=== PATIENT | female | born 1970 | race African-American/Black ===

== ENCOUNTER 2020-09-24 13:26 | Outpatient (CLI) | payer BC, SELFPAY ==
--- NOTE | ~2020-09-24 | CT_ITS ---
EXAMINATION: CT abdomen pelvis wo con DATE: 09/24/2020 13:53 INDICATION: Intermittent right lower quadrant abdominal pain for a month TECHNIQUE: Computed tomography (CT) of the abdomen and pelvis was performed without intravenous contr ast. Automated exposure control and iterative reconstruction technique were employed. Exam dose: 107 8.13 mGy-cm total exam DLP. COMPARISON: 12/22/2016 CT abdomen pelvis with IV contrast material FINDINGS: The lung bases are clear of infiltrate or consolidation. No pericardial or pleural effusion . The liver, gallbladder, bile ducts, spleen, pancreas and pancreatic duct are unremarkable on this pickard ited noncontrast examination. No adrenal mass lesion or renal mass lesion is evident. No urinary trac t calculus or hydroureteronephrosis is detected. The urinary bladder is unremarkable. The uterus and adnexal areas are unremarkable. Normal caliber of the abdominal aorta. No intraperitoneal or retroperitoneal or pelvic mass lesion or adenopathy or ascites. Normal appendix. No bowel obstruction. There is a prominent amount of fecal material in the colon. No bowel wall thickening, pneumatosis or intraperitoneal free air is detected. Small fat-containing umbilical hernia. There is a midline infraumbilical surgical ventral abdominal w all scar. Severe degenerative disc disease at L5-S1. Bilateral osteitis condensans ilii. No suspicious osteolytic or osteoblastic lesions are noted. IMPRESSION: Normal appendix; prominent amount of fecal material in the colon, no bowel obstruction Reviewed, dictated and finalized at [facility]. Reviewed, dictated and finalized at location B. DRIER
[2020-09-24 14:28] LABS: Basophils Absolute Auto 0.1 K/mm3 (0.0-0.1); Basophils Percent Auto 0.6 % (0.2-1.2); Eosinophils Absolute Auto 0.1 K/mm3 (0-0.3); Eosinophils Percent Auto 0.9 % (0-4.4); Hematocrit 36.4 % (37.0-47.0); Hemoglobin 11.2 g/dL (12.0-15.0); Immature Granulocyte Absolute 0.02 K/mm3 (0.00-0.031); Immature Granulocyte Percent A 0.2 % (0-0.5); Lymphocytes Absolute Auto 3.19 K/mm3 (0.9-3.2); Mean Corpuscular HGB Conc 30.8 g/dl (32-36); Mean Corpuscular Hemoglobin 22.4 pg (26-34); Mean Corpuscular Volume 72.7 fl (80-100); Monocytes Absolute Auto 0.5 K/mm3 (0.1-0.6); Monocytes Percent Auto 5.2 % (2.6-8.5); Neutrophils Absolute Auto 5.5 K/mm3 (1.3-6.7); Neutrophils Percent Auto 59.1 % (45.5-73.1); Platelet Count Result 281 k/mm3 (150-375); Red Blood Count 5.01 M/mm3 (4.2-5.4); Red Cell Distribution Width 16.4 % (11.5-14.5); White Blood Count 9.4 K/mm3 (4.5-10.0)
[2020-09-24 14:34] LABS: Add Urine Microscopic? YES; Appearance Urine Clear (Clear); Bilirubin Urine Negative (Negative); Blood Urine 1+ (Negative); Color Urine Straw (Yellow); Glucose Urine UA 3+ mg/dL (Negative); Ketones Urine Negative (Negative); Leukocyte Esterase Ur Negative LEU/UL (Negative); Mucus Urine Rare /lpf; Nitrate Urine Negative (Negative); Protein Urine 2+ mg/dL (Negative); RBC Urine 0-2 /hpf (0-2); Squamous Epithelial Cell Urine Rare /hpf (Few); Urobilinogen Urine Negative mg/dL (<2.0); WBC Urine 0-3 /hpf
[2020-09-24 14:35] LABS: Specific Grav Ur 1.031 (1.001-1.035)
[2020-09-24 14:47] LABS: Alanine Aminotransferase 16 U/L (4-35); Alkaline Phosphatase 100 U/L (38-126); Anion Gap 7 mmol/L (8-16); Aspartate Amino Transferase 23 U/L (14-36); Bilirubin,Total 0.3 mg/dL (0.2-1.3); Blood Urea Nitrogen 15 mg/dL (7-17); Calcium 9.6 mg/dL (8.4-10.2); Carbon Dioxide 32 mmol/L (22-30); Chloride 97 mmol/L (98-107); Estimated Glomerular Filt Rate > 60; Glucose 378 mg/dL (65-105); Potassium 4.5 mmol/L (3.4-5.0); Sodium 136 mmol/L (137-145)
== END 2020-09-24 13:27 | disposition home or self-care (01) ==
PROVIDERS: PCP Physician Assistant; Visit Provider Physician Assistant
DX: R10.31 Right lower quadrant pain (principal)
CPT/HCPCS: 36415; 74176; 80053; 81001; 85025

== ENCOUNTER 2021-01-01 10:36 | Outpatient (CLI) | payer OTHER, BC, SELFPAY ==
--- NOTE | ~2021-01-01 | MR_ITS ---
EXAMINATION: MR shoulder LT wo con DATE: 01/01/2021 11:34 INDICATION: Left rotator cuff cuff tear. TECHNIQUE: Magnetic resonance imaging (MRI) of the left shoulder was performed without intravenous co ntrast. Sequences included axial PD-weighted FS FSE, coronal oblique PD-weighted FS FSE, coronal obli que T2-weighted FS FSE, sagittal PD-weighted FS FSE, and sagittal T1-weighted SE. COMPARISON: None. FINDINGS: Coracoacromial arch: The acromion undersurface is curved in morphology (type II). The coracoacromial ligament is normal. M ild acromioclavicular osteoarthritis with small inferiorly directed osteophytes. Rotator cuff: Mild supraspinatus tendinopathy with full-thickness tear of the distal tendon which measures 1.2 cm A P and 0.8 cm medial to lateral. The tear is located within 8 mm of the of the superior facet footplat e with small amount of torn tendon material remaining attached along the footplate. Mild distal infra spinatus tendinopathy without discrete tear. The teres minor and subscapularis tendons are normal. N ormal rotator cuff muscle bulk and signal. Biceps tendon, glenoid labrum and glenohumeral cartilage: Long head of the biceps tendon is normal. Glenoid labrum is normal with normal anterosuperior sublabr al foramen. Glenohumeral cartilage is normal. Fluid: Small glenohumeral joint effusion which extends through the full-thickness rotator cuff tear into the subacromial/subdeltoid bursa along the long head biceps tendon sheath. No loose osteochondral bodies . Bones: Normal marrow signal with no edema, fracture or abnormal marrow replacing process. IMPRESSION: 1. Mild supraspinatus and infraspinatus tendinopathy with small to moderate-sized full-thickness tear of the distal supraspinatus tendon. Reviewed, dictated and finalized at location A. IMPRESSION: 1. Mild supraspinatus and infraspinatus tendinopathy with small to moderate-siz ed full-thickness tear of the distal supraspinatus tendon.
== END 2021-01-01 10:37 | disposition home or self-care (01) ==
LOC: ANHIMG 10:39
PROVIDERS: PCP Physician Assistant; Visit Provider Orthopaedic Surgery
DX: M75.102 Unspecified rotator cuff tear or rupture of left shoulder, not specified as traumatic (principal); M75.02 Adhesive capsulitis of left shoulder
CPT/HCPCS: 73221

== ENCOUNTER 2021-09-14 17:56 | Inpatient (IN) | payer BC, SELFPAY ==
[2021-09-14] VITALS (17 sets, daily range): BP systolic 164–182; BP diastolic 77–90; PULSE 90–99; RESP 19–54; TEMP 35.9; O2SAT 90–100
--- NOTE | ~2021-09-14 | CT_ITS ---
EXAMINATION: CTA chest PE protocol EXAM DATE: 09/14/2021 23:01 INDICATION: SOB, elevated d dimer. TECHNIQUE: Spiral CTA of the chest (pulmonary arteries) was performed with 100 cc Omnipaque 350 intr avenous contrast injection. Images were acquired during the pulmonary arterial phase. Coronal maxi mum intensity projection 3D-reconstructions were created by the technologist on dedicated workstation . Axial, coronal and sagittal reformatted images were reviewed. The dose-length product (DLP) for t his examination was 809.57 mGy-cm. The exposure was tailored according to patient size (auto mA exp osure control), and iterative reconstruction (ASIR) was used as additional dose reduction technique. Correlation is made to chest x-ray earlier same date. FINDINGS: The main, central pulmonary arteries are dilated which can indicate elevated pulmonary panda rial pressure, pulmonary arterial hypertension. Pulmonary arteries are well opacified and without in traluminal filling defects. No thoracic aortic dissection. There are moderate bilateral pleural eff usions, left greater than right. There is mild cardiomegaly. There is bibasilar compressive atelectas is from the pleural effusions. No evidence of superimposed pneumonia. Small pericardial effusion. Tra cheobronchial tree is patent. There is no mediastinal, hilar or axillary lymphadenopathy. There i s no pneumothorax. Heart normal in size. No evidence of coronary arterial calcification. Upper a bdomen is unremarkable. There is thoracic spondylosis without osteoblastic or osteolytic lesions id entified. IMPRESSION: Cardiomegaly. Moderate pleural effusions, adjacent atelectasis. Consider CHF exacerbatio n. Reviewed, dictated and finalized at location G. OR DATASTAGE DEVELOPER IMPRESSION: Cardiomegaly. Moderate pleural effusions, adjacent atelectasis. Co nsider CHF exacerbation.
--- NOTE | ~2021-09-14 | XR_ITS ---
EXAMINATION: XR chest 1V portable EXAM DATE: 09/14/2021 21:47 INDICATION: Shortness of breath. TECHNIQUE: Portable AP frontal chest x-ray was obtained. There is no prior study for comparison. FINDINGS: There is cardiomegaly and pulmonary vascular congestion. Moderate amount of ill-defined bib asilar pneumonia or edema. Probably small to moderate pleural effusions. Consider CHF exacerbation. P neumonia also possible. No pneumothorax. There are no osseous abnormalities identified. IMPRESSION: 1. Moderate edema or pneumonia. 2. Cardiomegaly, congestion. 3. Small to moderate pleural effusions. Reviewed, dictated and finalized at location G. NG CLOSER
[2021-09-14] MEDS: ALBUTEROL SULFATE NEB 2.5 MG/0.5 ML INH 5 MG INHALATION (22:06)
[2021-09-14] MEDS: IPRATROPIUM BR 0.02% INH SOLN 0.5 MG/2.5 ML VIAL INHALATION (22:06)
[2021-09-14 22:21] LABS: Basophils Absolute Auto 0.1 K/mm3 (0.0-0.1); Basophils Percent Auto 0.6 % (0.2-1.2); Eosinophils Absolute Auto 0.2 K/mm3 (0-0.3); Eosinophils Percent Auto 2.1 % (0-4.4); Hematocrit 28.6 % (37.0-47.0); Hemoglobin 8.6 g/dL (12.0-15.0); Immature Granulocyte Absolute 0.03 K/mm3 (0.00-0.031); Immature Granulocyte Percent A 0.3 % (0-0.5); Lymphocytes Absolute Auto 2.83 K/mm3 (0.9-3.2); Lymphocytes Percent Auto 29.6 % (18.3-44.2); Mean Corpuscular HGB Conc 30.1 g/dl (32-36); Mean Corpuscular Hemoglobin 21.1 pg (26-34); Mean Corpuscular Volume 70.1 fl (80-100); Monocytes Absolute Auto 0.5 K/mm3 (0.1-0.6); Monocytes Percent Auto 4.7 % (2.6-8.5); Neutrophils Percent Auto 62.7 % (45.5-73.1); Platelet Count Result 260 k/mm3 (150-375); Red Blood Count 4.08 M/mm3 (4.2-5.4); Red Cell Distribution Width 17.4 % (11.5-14.5); White Blood Count 9.6 K/mm3 (4.5-10.0)
[2021-09-14 22:34] LABS: Alanine Aminotransferase 64 U/L (4-35); Alkaline Phosphatase 92 U/L (38-126); Anion Gap 8 mmol/L (8-16); Aspartate Amino Transferase 42 U/L (14-36); Bilirubin,Total 0.3 mg/dL (0.2-1.3); Blood Urea Nitrogen 6 mg/dL (7-17); Carbon Dioxide 28 mmol/L (22-30); Chloride 99 mmol/L (98-107); D Dimer 1.42 ug/mL (<0.48); Estimated CRCL calculation 115 ml/min; Estimated Glomerular Filt Rate > 60; Glucose 202 mg/dL (65-110); Potassium 3.9 mmol/L (3.4-5.0); Sodium 135 mmol/L (137-145)
[2021-09-14 22:42] LABS: NT Pro B Type Natriuretic Pept 654 pg/mL (5-100)
--- NOTE | 2021-09-14 23:27 | ECG_ITS ---
Measurements Intervals [place] Rate: 95 P: 57 [place]: 127 QRS: 9 QRSD: 81 T: -19 QT: 346 QTc: 437 Interpretive Statements SINUS RHYTHM BORDERLINE ST-T WAVE ABNORMALITY- ANTEROLAT/INF LEADS BASELINE WANDER- V3-V6 BORDERLINE ECG Electronically Signed On 09-15-2021 6:45:57 IMMIGRATION OFFICER by Titus Petty D.O.
--- NOTE | 2021-09-14 23:31 | ED.GENADULT ---
HPI - General Adult General Chief complaint: Upper Respiratory Infection Stated complaint: can't breath Time Seen by Provider: 09/14/21 21:13 Source: patient Mode of arrival: ambulatory Limitations: no limitations History of Present Illness HPI narrative: 51-year-old with a history of diabetes here with complaints of shortness of breath chest pain for past 3 days. Patient states that she went to urgent care over the weekend had a Covid screen done which was negative she was empirically started on antibiotic for pneumonia. She complains of occasional cough which is nonproductive. No history of fever or chills. Onset (ago): day(s) (3) Location: chest Severity: moderate Quality: aching Pain Consistency: intermittent Relieving factors: none Exacerbating factors: none Associated symptoms: chest pain Treatments prior to arrival: none Related Data Home Medications Medication Instructions Recorded Confirmed rosuvastatin mg 09/14/21 sitagliptin [Januvia] mg 09/14/21 Allergies Allergy/AdvReac Type Severity Reaction Status Date / Time No Known Allergies Allergy Unverified 02/05/19 09:09 Review of Systems Review of Systems: All systems reviewed & are unremarkable except as noted in HPI and below Constitutional: Constitutional: Reports no additional constitutional complaints Eyes: Eyes: Reports no additional eye complaints ENT: Reports system reviewed and no additional complaints, except as documented Cardiovascular: Cardiovascular: Reports no additional cardiovascular complaints Respiratory: Respiratory: Reports as per HPI Gastrointestinal: Gastrointestinal: Reports no additional gastrointestinal complaints Musculoskeletal: Musculoskeletal: Reports no additional musculoskeletal complaints Integumentary/Breasts: Skin/Breast: Reports system reviewed and no additional complaints, except as docu [facility] Family History Family History (Updated 09/14/21 @ 23:34 by Usama Macario MD) Other Diabetes mellitus Hypertension Exam Narrative: GENERAL: Well-appearing, well-nourished, and in no acute distress. HEAD: Normocephalic, atraumatic. EYES: PERRLA and EOMI. NECK: Supple. CHEST:decreased air entry ,no wheeze, few crackles HEART: Regular rate and rhythm. No murmur heard. Normal peripheral pulses. ABDOMEN: Soft, nontender, nondistended, normal active bowel sounds. EXTREMITIES: Normal range of motion. No edema. SKIN: Warm, dry, no rash. NEURO: No focal deficits. Alert and oriented x3. PSYCH: Normal mood and affect. Course Course Emergency Course: Inform patient and her about her lab work, x-ray findings. Give IV Lasix 40 mg, will admit to the hospital for evaluation of CHF. Vital Signs Vital signs: Vital Signs Temperature 35.9 C L 09/14/21 18:16 Pulse Rate 94 09/14/21 18:16 Respiratory Rate 19 09/14/21 18:16 Blood Pressure 168/88 H 09/14/21 18:16 Pulse Oximetry 95 09/14/21 18:16 Temperature 35.9 C L 09/14/21 18:16 Pulse Rate 96 09/14/21 23:18 Respiratory Rate 32 H 09/14/21 23:18 Blood Pressure 182/89 H 09/14/21 23:18 Pulse Oximetry 92 09/14/21 23:18 Medical Decision Making MDM Narrative Medical decision making narrative: With a history of shortness of breath and chest discomfort will do a cardiac work-up. Chest x-ray shows CHF. Patient denied having CHF in the past has had the diagnosis. She I will give her IV Lasix 40 mg. And her SPO2 is between 88 and 90% will place her on 2 L. Will admit to the hospital have cardiology evaluate her in the morning for CHF Differential Diagnosis Differential Diagnosis: Pneumonia, Covid, PE, CHF Medical Records Medical records reviewed: Yes I reviewed the external patient's medical records. Vital Signs Vital Signs: Vital Signs Temperature 35.9 C L 09/14/21 18:16 Pulse Rate 94 09/14/21 18:16 Respiratory Rate 19 09/14/21 18:16 Blood Pressure 168/88 H 09/14/21 18:16 Pulse Oximetry 95 09/14/21 18:16
--- NOTE | 2021-09-14 23:40 | PC.NURSE ---
2L O2 nasal cannula applied at this time per ERP VRBO.
[2021-09-15] VITALS (12 sets, daily range): BP systolic 115–171; BP diastolic 80–103; PULSE 89–97; RESP 17–20; TEMP 36.3–36.8; O2SAT 92–100; BMI 36.2
--- NOTE | 2021-09-15 00:14 | PM.IMHP ---
H&P: HPI History of Present Illness Date/Time: 09/15/21 00:14 Chief Complaint: SHORTNESS OF BREATH Narrative: This is a 51-year-old female with past medical history significant for hypertension, type 2 diabetes mellitus. Patient presented to the emergency room due to worsening shortness of breath for the last week or so she denies any fevers but has had chills she has had a persistent cough that is worse at bedtime, it is nonproductive, patient has not been able to sleep well due to shortness of breath at nighttime PND and orthopnea she denies any leg swelling ,denies any sputum production, no nausea, no vomiting ,no abdominal pain ,no diarrhea, she has been her usual state of health up until this. Preliminary workup was significant for elevated D-dimer a CT angio of the chest did not show acute pulmonary embolism, a brain atretic peptide was elevated at 600 a chest x-ray showed bilateral long pleural effusions patient has been admitted for further management evaluation and treatment. Review of Systems Review of Systems: Shortness of breath, PND, orthopnea, chills, persistent dry cough. Constitutional: Constitutional: Reports chills, Denies fatigue, Denies fever(s), Denies lethargy, Denies malaise, Denies night sweats, Reports poor appetite and Denies weakness Eyes: Eyes: Denies change in vision ENT: Denies dysphagia, Denies vertigo, Denies dizziness, Denies nasal congestion, Denies nasal discharge, Denies nasal obstruction and Denies odynophagia Cardiovascular: Cardiovascular: Denies chest pain, Denies pedal edema, Denies irregular heart rhythm, Denies leg edema, Denies lightheadedness, Denies radiating jaw, neck or arm pain, Denies palpitations, Reports dyspnea, Reports orthopnea and Reports paroxysmal nocturnal dyspnea Respiratory: Respiratory: Denies change in phlegm color, Denies chest congestion, Reports cough, Denies excessive phlegm production and Reports dyspnea Gastrointestinal: Gastrointestinal: Denies abdominal pain, Denies dyspepsia, Denies heartburn, Denies diarrhea, Denies nausea and Denies vomiting Genitourinary: Genitourinary: Denies dysuria Musculoskeletal: Musculoskeletal: Denies arthralgias, Denies joint swelling and Denies muscle weakness Integumentary/Breasts: Skin/Breast: Denies rash Neurologic: Denies focal weakness and Denies Sensory deficit (Neuro) Psychiatric: Psychiatric: Reports no additional psychiatric complaints and Reports as per HPI Endocrine: Endocrine: Reports no additional endocrine complaints and Reports as per HPI Hematologic/Lymphatic: Hematologic/Lymphatic: Reports no additional hematologic/lymphatic complaints and Reports as per HPI Allergic/Immunologic: Allergic/Immunologic: Reports no additional allergic/immunologic complaints [facility] Family History Family History (Updated 09/15/21 @ 01:52 by Paul Cavazos RN) Mother Diabetes mellitus Hypertension Heart problem Hyperlipidemia Father Heart attack Social History Social History Smoking status: Never smoker Alcohol intake: never Drinks per week: 1 Substance use: never Spiritual care concerns: No Meds Home Medications and Allergies Home Medications Medication Instructions Recorded Confirmed Type rosuvastatin 10 mg PO DAILY 09/14/21 09/15/21 History sitagliptin [Januvia] 50 mg PO DAILY 09/14/21 09/15/21 History albuterol sulfate 2 puff INHALATION Q4-6H PRN 09/15/21 09/15/21 History metformin 1,000 mg PO BID 09/15/21 09/15/21 History Allergies Allergy/AdvReac Type Severity Reaction Status Date / Time No Known Allergies Allergy Verified 09/15/21 01:34 Vital Signs Vital Signs - 24 hr 09/14/21 18:16 09/14/21 21:02 09/14/21 21:03 Temperature 96.6 F L Pulse Rate 94 92 Respiratory Rate 19 54 H 36 H Blood Pressure 168/88 H 164/82 H Pulse Oximetry 95 92 95 09/14/21 21:39 09/14/21 21:46 09/14/21 21:47 Temperature Pulse Rate 94 91 91 Respiratory Rate 33 H 33 H 35 H Blood Pressu
[2021-09-15] MEDS: FUROSEMIDE INJ 40 MG/4 ML VIAL (00:26)
--- NOTE | 2021-09-15 00:26 | PC.NURSE ---
Issue with orders transferring to [facility], VRBO 40 mg lasix with ERP. Administered to pt.
--- NOTE | 2021-09-15 01:30 | ADMGEN ---
This patient, Riya Chris, was admitted to Medical Room 347-. Patient/family oriented to hospital policies and general routines including ID bracelet, bed and alarms, visiting hours, pain management, procedures, bathroom and other care routines, personal items, smoking policy, room service/diet, and visiting hours. Information on how to activate the Rapid Response Team has been discussed. Patient/Family are encouraged to report perceived risks to care and to ask questions if they do not understand what they are told or what they should do.
[2021-09-15] MEDS: cefTRIAXone 2 GM in SODIUM CHLORIDE 0.9% IV 100 ML 200 ML IVPB ×2 (04:51→20:00)
[2021-09-15 05:42] LABS: Troponin I < 0.012 ng/mL (0.000-0.034)
[2021-09-15 07:42] LABS: Glucose Point of Care 206 mg/dl (65-105)
[2021-09-15] MEDS: INSULIN ASPART (*BKC) 100 UNITS/ML SUB-Q (07:54)
[2021-09-15] MEDS: FUROSEMIDE INJ 40 MG/4 ML VIAL IV PUSH ×2 (07:55→20:00)
[2021-09-15] MEDS: ROSUVASTATIN 10 MG TABLET PO (07:55)
--- NOTE | 2021-09-15 08:30 | PM.IMPN ---
Progress Note: A&P Assessment and Plan (1) Congestive heart failure: Code(s): I50.9 - Heart failure, unspecified Status: Acute Assessment and Plan: BNP was 654 Chest xray showed moderate pulmonary edema CTA no PE, Cardiomeagly, moderate pleural effusions, adjacent atelectasis Bilateral bibasilar pleural effusions present, probably related to CHF exacerbation Echo ordered and pending Aggressive diuresis 40mg IV BID Strict I&O Daily weight (2) Hypertension: Code(s): I10 - Essential (primary) hypertension Status: Acute Assessment and Plan: BP 141/80 No home meds She will probably be DCd with a diruectic Trend BP adjust medications as needed (3) Diabetes mellitus: Code(s): E11.9 - Type 2 diabetes mellitus without complications Status: Acute Assessment and Plan: Glucose 202 Holding metformin and Januvia Accu-Cheks AC and HS Insulin sliding scale as needed hypoglycemia protocol Adjust medications as needed (4) Anemia: Code(s): D64.9 - Anemia, unspecified Status: Acute Assessment and Plan: Anemia labs indicate iron deficient anemia Ferrous sulfate 325 BID H/H is significantly decreased from yesterday Continue to trend Consider transfusion if Hgb 7.0 Time Spent With Patient Time with patient: Greater than 35 minutes Subjective Date/time seen: 09/15/21829 Interval history: Date/Time: 09/15/21 00:14 Narrative: This is a 51-year-old female with past medical history significant for hypertension, type 2 diabetes mellitus. Patient presented to the emergency room due to worsening shortness of breath for the last week or so she denies any fevers but has had chills she has had a persistent cough that is worse at bedtime, it is nonproductive, patient has not been able to sleep well due to shortness of breath at nighttime PND and orthopnea she denies any leg swelling ,denies any sputum production, no nausea, no vomiting ,no abdominal pain ,no diarrhea, she has been her usual state of health up until this. Preliminary workup was significant for elevated D-dimer a CT angio of the chest did not show acute pulmonary embolism, a brain atretic peptide was elevated at 600 a chest x-ray showed bilateral long pleural effusions patient has been admitted for further management evaluation and treatment. Date/Time 09/15/21829 Patient was up walking around the room. She is being diuresed with some moderate pulmonary edema. She stated that she is much better today. She stated that she still has the cough, however, it is not as bad as it was prior to her coming in. She denies any further wheezes. Cardiology had seen this patient as well. Echo as been ordered, however is still pending and awaiting to be performed. She is ready to go home. Her labs do indicate that she does have some anemia that is mostly related to low iron. Her other labs seem to be ok. She denies chest pain, shortness of breath, nausea, vomiting, abdominal pain, sweats, fevers, or chills. Review of Systems Review of Systems: All systems reviewed & are unremarkable except as noted in HPI and below Exam Const: General: cooperative, comfortable, no acute distress, well developed, alert, awake and Physically active Nutritional Appearance: average body habitus Orientation/consciousness: oriented to person, oriented to place, oriented to time and patient oriented x3 HENMT: Head: normal to inspection, normocephalic and atraumatic Ears: hearing grossly normal bilaterally General nose exam: Normal external nose present Face and sinus: normal facial exam Eyes: General: appearance normal, both eyes and all related structures Alignment and Position: alignment normal Sclera: sclerae normal Pupils: Equal, round and reactive pupils present EOM: EOMs intact bilaterally Neck: Neck: normal visual inspection, full ROM, no lymphadenopathy, supple an
[2021-09-15 10:25] LABS: Troponin I < 0.012 ng/mL (0.000-0.034)
--- NOTE | 2021-09-15 11:03 | PM.CNCAR ---
Assessment and Plan Additional Plan 51-year-old lady with a background of non insulin and diabetes and dyslipidemia presenting with several weeks of gradually increasing shortness of breath. Chest x-ray shows some enlargement of the cardiac silhouette as well as some bilateral congestion. She feels better after being diuresed with furosemide. Of concern to me as well as she has significant microcytic anemia. Hemoglobin is 8.6 with microcytic indices. I will go ahead and order some iron studies and D for further evaluation of this to the primary team. For the time being since she appears to have congestive failure and hypertension I will start her on lisinopril, carvedilol and for now keep the IV furosemide going. Further cardiac recommendations will be pending completion of her echocardiogram and review of those findings. Obviously she has significant risk for coronary disease being diabetic, dyslipidemic and with her family history of premature coronary in her father. Thank you very much for asking me to see this nice lady in consultation Tu Soria MD [facility] History of Present Illness History of Present Illness Consult date/time: 09/15/21 11:03 Consult reason: congestive heart failure Reason For Visit: New Onset CHF Narrative: This is a 51-year-old lady who I am seeing this morning at the request of the hospitalist to evaluate congestive heart failure. The patient is comfortable this morning and does not have any active complaints. She came into the hospital yesterday with a chief complaint of shortness of breath which was gradual in its onset over the last several weeks prior to admission to the hospital. She is a mail clerk working for the [employer] and has noticed that with physical activities of her job she has to stop to catch her breath when typically that is not the case. This became more problematic and finally she came into the hospital emergency room yesterday for evaluation. In the emergency room she was felt to be in some congestive heart failure by exam and by chest x-ray. Her laboratory date also demonstrated significant microcytic anemia. She has been treated with antibiotics as well as IV furosemide and she says she feels noticeably better today than she did yesterday. She not having any sense of chest pain pressure or heaviness she does not have any lower extremity edema orthopnea or PND. According to the chart she is rather hypertensive since she has been in the hospital although she states hypertension is not 1 of her known medical problems. She does have past medical history of non insulin-dependent diabetes and dyslipidemia. There is a family history of coronary disease at a premature age with her father dying of a myocardial infarction at the age of 46. Chest x-ray demonstrates enlargement of the cardiac silhouette and some bilateral pleural effusions. Echocardiogram has been ordered by the hospitalist and has yet to be performed. Review of Systems Constitutional: Constitutional: Reports no additional constitutional complaints Eyes: Eyes: Reports no additional eye complaints ENT: Reports system reviewed and no additional complaints, except as documented Cardiovascular: Cardiovascular: Reports as per HPI Respiratory: Respiratory: Reports dyspnea on exertion Gastrointestinal: Gastrointestinal: Reports no additional gastrointestinal complaints Musculoskeletal: Musculoskeletal: Reports no additional musculoskeletal complaints Integumentary/Breasts: Skin/Breast: Reports system reviewed and no additional complaints, except as docu Neurologic: Reports system reviewed and no additional complaints, except as documented Endocrine: Endocrine: Reports no additional endocrine complaints Hematologic/Lymphatic: Hematologic/Lymphatic: Reports no additional hematologic/lymphatic complaints Allergic/Immunologic: Allergic/Immunologic: Reports no additional allergic/immunologic complaints [facility]
[2021-09-15 11:46] LABS: Troponin I < 0.012 ng/mL (0.000-0.034)
[2021-09-15 11:53] LABS: Iron 26 ug/dL (37-170)
[2021-09-15 12:00] LABS: Glucose Point of Care 114 mg/dl (65-105)
[2021-09-15 12:03] LABS: Percent Iron Saturation 8 % (20-50)
[2021-09-15] MEDS: lisinopriL 10 MG TABLET PO (12:10)
[2021-09-15 16:29] LABS: Glucose Point of Care 167 mg/dl (65-105)
[2021-09-15] MEDS: FERROUS SULFATE 324 MG TABLET PO (17:47)
[2021-09-15] MEDS: carvediloL 6.25 MG TABLET PO (20:00)
[2021-09-15 20:56] LABS: Glucose Point of Care 215 mg/dl (65-105)
[2021-09-16] VITALS (9 sets, daily range): BP systolic 128–152; BP diastolic 61–77; PULSE 84–94; RESP 16–20; TEMP 36.2–36.6; O2SAT 93–99
--- NOTE | 2021-09-16 | ECHO_ITS ---
Patient Info Name: Riya Chris Age: 51 years : 1970 Gender: Female Ht: 67 in Wt: 231 lbs BSA: 2.27 m2 HR: 72 bpm BP: 138 / 65 mmHg Heart Rhythm: Sinus Rhythm Technical Quality: Good Exam Date: 09/16/2021 10:27 AM Exam Location: [facility] Pulmonary Exam Room: 347 Patient Status: Inpatient Admit Date: 09/15/2021 Staff Ordering Physician: Michael Grant MD Licensed Marriage And Family Therapist: Liliana Bills RDCS Attending Provider: Michael Grant MD Referring Physician: Rudy SILVA; Exam Type: CA echo doppler color flow Study Info Indications - sob chf Complete two-dimensional, color flow and Doppler transthoracic echocardiogram is performed. Summary 1. Complete two-dimensional, color flow and Doppler transthoracic echocardiogram is performed. 2. Left ventricular chamber dimension is normal. 3. Left ventricular systolic function is normal, estimated at 60-65%. 4. There is mildly increased left ventricular wall thickness. 5. The left ventricular diastolic function is grade II diastolic dysfunction. 6. Left atrial chamber dimension is mildly enlarged. 7. There is mild aortic valve regurgitation. 8. There is mild mitral valve regurgitation. 9. Moderate pulmonary hypertension, estimated pulmonary arterial systolic pressure is 50 mmHg. 10. There is mild tricuspid valve regurgitation. 11. There is mild pulmonic regurgitation. Left Ventricle Left ventricular chamber dimension is normal. Left ventricular systolic function is normal, estimated at 60-65%. There is mildly increased left ventricular wall thickness. The left ventricular diastolic function is grade II diastolic dysfunction. Right Ventricle Right ventricular chamber dimension is normal. Right ventricular systolic function is normal. Left Atria Left atrial chamber dimension is mildly enlarged. Right Atria Right atrial chamber dimension is normal. Atrial Septum Bowing of the atrial septum to the right consistent with elevated left atrial pressures. Thin and hypermobile atrial septum. Aortic Valve The aortic valve is trileaflet. There is mild aortic valve sclerosis. There is no aortic valve stenosis. There is mild aortic valve regurgitation. Pulmonic Valve The pulmonic valve is normal. There is no pulmonic valve stenosis. There is mild pulmonic regurgitation. Mitral Valve The mitral valve has normal leaflets. There is no mitral valve stenosis. There is mild mitral valve regurgitation. Tricuspid Valve The tricuspid valve leaflets are normal. There is no significant tricuspid valve stenosis. There is mild tricuspid valve regurgitation. Moderate pulmonary hypertension, estimated pulmonary arterial systolic pressure is 50 mmHg. Pericardium/Pleural The pericardium appears normal. There is no pericardial effusion. Inferior Vena Cava Normal inferior vena cava with >50% collapse upon inspiration consistent with normal right atrial pressure, 10 mmHg. Aorta The aortic root size at the sinus of Valsalva is normal. Left Ventricular Outflow Tract Name Value Normal LVOT 2D LVOT Diameter 2.0 cm LVOT Doppler
[2021-09-16 05:50] LABS: Basophils Percent Auto 0.4 % (0.2-1.2); Eosinophils Absolute Auto 0.2 K/mm3 (0-0.3); Eosinophils Percent Auto 2.3 % (0-4.4); Hematocrit 26.5 % (37.0-47.0); Hemoglobin 8.1 g/dL (12.0-15.0); Immature Granulocyte Absolute 0.03 K/mm3 (0.00-0.031); Immature Granulocyte Percent A 0.4 % (0-0.5); Lymphocytes Absolute Auto 2.74 K/mm3 (0.9-3.2); Lymphocytes Percent Auto 34.3 % (18.3-44.2); Mean Corpuscular HGB Conc 30.6 g/dl (32-36); Mean Corpuscular Hemoglobin 21.3 pg (26-34); Mean Corpuscular Volume 69.6 fl (80-100); Mean Platelet Volume 9.8 fl (7.4-10.4); Monocytes Absolute Auto 0.5 K/mm3 (0.1-0.6); Monocytes Percent Auto 5.8 % (2.6-8.5); Neutrophils Absolute Auto 4.5 K/mm3 (1.3-6.7); Neutrophils Percent Auto 56.8 % (45.5-73.1); Platelet Count Result 210 k/mm3 (150-375); Red Blood Count 3.81 M/mm3 (4.2-5.4)
[2021-09-16 06:03] LABS: Potassium 3.4 mmol/L (3.4-5.0)
[2021-09-16 06:24] LABS: Anion Gap 8 mmol/L (8-16); Blood Urea Nitrogen 11 mg/dL (7-17); Calcium 8.5 mg/dL (8.4-10.2); Carbon Dioxide 32 mmol/L (22-30); Chloride 97 mmol/L (98-107); Estimated CRCL calculation 101 ml/min; Estimated Glomerular Filt Rate > 60; Glucose 189 mg/dL (65-110); Magnesium 1.5 mg/dL (1.6-2.3); Sodium 137 mmol/L (137-145)
[2021-09-16] MEDS: MAGNESIUM SULF 4 GM/WATER100ML 4 GM/100 ML BAG IVPB (07:25)
--- NOTE | 2021-09-16 07:45 | PM.IMPN ---
Progress Note: A&P Assessment and Plan (1) Congestive heart failure: Code(s): I50.9 - Heart failure, unspecified Status: Acute Assessment and Plan: BNP was 654 Chest xray showed moderate pulmonary edema CTA no PE, Cardiomegaly, moderate pleural effusions, adjacent atelectasis Bilateral bibasilar pleural effusions present, probably related to CHF exacerbation Echo pending Aggressive diuresis 40mg IV BID, Lasix 40mg PO Strict I&O Daily weight (2) Hypertension: Code(s): I10 - Essential (primary) hypertension Status: Acute Assessment and Plan: BP 141/80 No home meds She will probably be DCd with a diruectic Trend BP adjust medications as needed (3) Diabetes mellitus: Code(s): E11.9 - Type 2 diabetes mellitus without complications Status: Acute Assessment and Plan: Glucose 189 Holding metformin and Januvia Accu-Cheks AC and HS Insulin sliding scale as needed hypoglycemia protocol Adjust medications as needed (4) Anemia: Code(s): D64.9 - Anemia, unspecified Status: Acute Assessment and Plan: Anemia labs indicate iron deficient anemia Ferrous sulfate 325 BID H/H is still trending down Continue to trend Consider transfusion if Hgb 7.0 Subjective Date/time seen: 09/16/21 0745 Interval history: Date/Time: 09/15/21 00:14 Narrative: This is a 51-year-old female with past medical history significant for hypertension, type 2 diabetes mellitus. Patient presented to the emergency room due to worsening shortness of breath for the last week or so she denies any fevers but has had chills she has had a persistent cough that is worse at bedtime, it is nonproductive, patient has not been able to sleep well due to shortness of breath at nighttime PND and orthopnea she denies any leg swelling ,denies any sputum production, no nausea, no vomiting ,no abdominal pain ,no diarrhea, she has been her usual state of health up until this. Preliminary workup was significant for elevated D-dimer a CT angio of the chest did not show acute pulmonary embolism, a brain atretic peptide was elevated at 600 a chest x-ray showed bilateral long pleural effusions patient has been admitted for further management evaluation and treatment. Date/Time 09/15/21 0830 Patient was up walking around the room. She is being diuresed with some moderate pulmonary edema. She stated that she is much better today. She stated that she still has the cough, however, it is not as bad as it was prior to her coming in. She denies any further wheezes. Cardiology had seen this patient as well. Echo as been ordered, however is still pending and awaiting to be performed. She is ready to go home. Her labs do indicate that she does have some anemia that is mostly related to low iron. Her other labs seem to be ok. She denies chest pain, shortness of breath, nausea, vomiting, abdominal pain, sweats, fevers, or chills. Date/Time 09/16/21 0745 Patient is doing well. She is ready to go home. She did state that she had a little chest in the sternum. She denied having shortness of breath, nausea, vomiting, abdominal pain, sweats, fevers, chills, weakness, fatigue. She has been getting up and down well. She denies having blood pressure medications at home. She does feel good and she does seem ready to go. Review of Systems Review of Systems: All systems reviewed & are unremarkable except as noted in HPI and below Exam Const: General: cooperative, comfortable, no acute distress, well developed, alert, awake and Physically active Nutritional Appearance: average body habitus Orientation/consciousness: oriented to person, oriented to place, oriented to time and patient oriented x3 HENMT: Head: normal to inspection, normocephalic and atraumatic Ears: hearing grossly normal bilaterally General nose exam: Normal external nose present Face and sinus:
[2021-09-16 08:13] LABS: Glucose Point of Care 184 mg/dl (65-105)
[2021-09-16] MEDS: lisinopriL 10 MG TABLET PO (08:25)
[2021-09-16] MEDS: FERROUS SULFATE 324 MG TABLET PO ×2 (08:25→16:32)
[2021-09-16] MEDS: carvediloL 6.25 MG TABLET PO ×2 (08:25→20:18)
[2021-09-16] MEDS: ROSUVASTATIN 10 MG TABLET PO (08:25)
[2021-09-16] MEDS: FUROSEMIDE INJ 40 MG/4 ML VIAL IV PUSH (08:26)
--- NOTE | 2021-09-16 10:38 | PM.PNCARD ---
Progress Note: A&P Assessment and Plan (1) Congestive heart failure: Code(s): I50.9 - Heart failure, unspecified Status: Acute Assessment and Plan: Presented with progressive shortness of breath for about 1 week. Evidence of CHF on initial work up with pulmonary edema and some small pleural effusions on CXR, very mild elevation of NT-pro BNP. She is feeling much better after receiving IV furosemide, significant improvement in her breathing. Will shift her to oral furosemide today 40mg b.i.d. Echo has been performed, results pending. She has already been placed on lisinopril and coreg. Further recommendations to follow review of those results. (2) Hypertension: Code(s): I10 - Essential (primary) hypertension Status: Acute Assessment and Plan: Remains above goal. Will increase lisinopril to 20mg daily for now. May need to add another agent Subjective Date/time seen: 09/16/21 10:38 Cardiology follow up for CHF Date of service 09/16/2021: Feeling much better today. Her breathing has improved significantly. No shortness of breath with ambulating around her room. No swelling. She does not have any complaints. Review of Systems Constitutional: Constitutional: Reports no additional constitutional complaints Eyes: Eyes: Reports no additional eye complaints ENT: Reports system reviewed and no additional complaints, except as documented Cardiovascular: Cardiovascular: Reports as per HPI and Reports dyspnea on exertion Respiratory: Respiratory: Reports dyspnea on exertion Gastrointestinal: Gastrointestinal: Reports no additional gastrointestinal complaints Musculoskeletal: Musculoskeletal: Reports no additional musculoskeletal complaints Integumentary/Breasts: Skin/Breast: Reports system reviewed and no additional complaints, except as docu Neurologic: Reports system reviewed and no additional complaints, except as documented Endocrine: Endocrine: Reports no additional endocrine complaints Hematologic/Lymphatic: Hematologic/Lymphatic: Reports no additional hematologic/lymphatic complaints Allergic/Immunologic: Allergic/Immunologic: Reports no additional allergic/immunologic complaints Exam Const: General: comfortable and no acute distress Other: Pleasant overweight black female resting comfortably in bed HENMT: Mouth: Yes moist mucous membranes Eyes: Sclera: sclerae normal Pupils: Equal, round and reactive pupils present Neck: Neck: supple and no JVD Resp: Effort & Inspection: normal respiratory effort Auscultation: crackles (fine crackles 1/[address] bilaterally ) Cardio: Rate: regular rate Rhythm: regular rhythm Heart sounds: no murmurs GI: Auscultation: normal bowel sounds Skin: General skin exam: normal color Neuro: Cranial nerves: Yes Equal, round and reactive pupils present Cognition (Neuro): normal cognition Extrem: General: normal to inspection and no edema Psych: Appearance: grossly normal Mental Status: mental status grossly normal Objective Data Vital Signs Vital Signs: Vital Signs - 24 hr 09/15/21 12:00 09/15/21 14:00 09/15/21 16:00 Temperature 36.5 C Pulse Rate 92 91 97 Respiratory Rate 18 Blood Pressure 141/80 H Pulse Oximetry 95 09/15/21 19:51 09/15/21 20:00 09/16/21 00:00 Temperature 36.8 C Pulse Rate 89 91 87 Respiratory Rate 18 Blood Pressure 157/82 H Pulse Oximetry 100 09/16/21 04:00 09/16/21 04:26 09/16/21 08:00 Temperature 36.6 C Pulse Rate 84 85 94 Respiratory Rate 16 Blood Pressure 138/65 Pulse Oximetry 95 Intake/Output Intake/Output: Intake & Output 09/13/21 09/14/21 09/15/21 09/16/21 23:59 23:59 23:59 23:59 Intake Total 2225 460 Output Total 2 250 Balance 2223 210 Meds/Results Medications: Active Medications Generic Name Dose Route Start Last Admin Trade Name Nikitaq PRN Reason Stop Dose Admin Acetaminophen 650 mg 09/15/21 00:14 Acetaminophe
[2021-09-16 11:54] LABS: Glucose Point of Care 254 mg/dl (65-105)
[2021-09-16] MEDS: AMOXICILLIN/CLAVULANATE K 875-125 MG TAB 1 TABLET PO ×2 (12:42→20:18)
[2021-09-16] MEDS: INSULIN ASPART (*BKC) 100 UNITS/ML SUB-Q (12:42)
[2021-09-16] MEDS: FUROSEMIDE 40 MG TABLET PO (16:32)
[2021-09-16 16:39] LABS: Glucose Point of Care 180 mg/dl (65-105)
[2021-09-16 21:37] LABS: Glucose Point of Care 257 mg/dl (65-105)
[2021-09-17] VITALS: PULSE 88
[2021-09-17 04:00] VITALS: PULSE 85
[2021-09-17 06:00] VITALS: BP 138/65; PULSE 85; RESP 20; TEMP 36.6; O2SAT 98
[2021-09-17 06:30] LABS: Basophils Percent Auto 0.5 % (0.2-1.2); Eosinophils Absolute Auto 0.2 K/mm3 (0-0.3); Eosinophils Percent Auto 2.1 % (0-4.4); Hematocrit 26.4 % (37.0-47.0); Hemoglobin 7.8 g/dL (12.0-15.0); Immature Granulocyte Absolute 0.02 K/mm3 (0.00-0.031); Immature Granulocyte Percent A 0.3 % (0-0.5); Lymphocytes Absolute Auto 2.88 K/mm3 (0.9-3.2); Lymphocytes Percent Auto 36.2 % (18.3-44.2); Mean Corpuscular HGB Conc 29.5 g/dl (32-36); Mean Corpuscular Hemoglobin 20.2 pg (26-34); Mean Corpuscular Volume 68.2 fl (80-100); Monocytes Absolute Auto 0.5 K/mm3 (0.1-0.6); Monocytes Percent Auto 6.4 % (2.6-8.5); Neutrophils Absolute Auto 4.3 K/mm3 (1.3-6.7); Neutrophils Percent Auto 54.5 % (45.5-73.1); Platelet Count Result 230 k/mm3 (150-375); Red Blood Count 3.87 M/mm3 (4.2-5.4); Red Cell Distribution Width 16.7 % (11.5-14.5)
[2021-09-17 07:05] LABS: Alanine Aminotransferase 36 U/L (4-35); Albumin Level 3.3 g/dL (3.5-5.1); Alkaline Phosphatase 80 U/L (38-126); Anion Gap 5 mmol/L (8-16); Aspartate Amino Transferase 31 U/L (14-36); Bilirubin,Total 0.2 mg/dL (0.2-1.3); Blood Urea Nitrogen 14 mg/dL (7-17); Calcium 8.3 mg/dL (8.4-10.2); Carbon Dioxide 32 mmol/L (22-30); Chloride 97 mmol/L (98-107); Estimated CRCL calculation 101 ml/min; Estimated Glomerular Filt Rate > 60; Glucose 248 mg/dL (65-110); Magnesium 1.9 mg/dL (1.6-2.3); Potassium 3.7 mmol/L (3.4-5.0); Sodium 134 mmol/L (137-145)
[2021-09-17 07:21] LABS: Anisocytosis 1+ (NORMAL); Hypochromasia 1+ (NORMAL); Platelet Estimate Adequate (Adequate); Poikilocytosis 1+ (NORMAL)
[2021-09-17 07:57] LABS: Glucose Point of Care 222 mg/dl (65-105)
[2021-09-17 08:00] VITALS: PULSE 87
[2021-09-17 08:10] VITALS: PULSE 86
[2021-09-17] MEDS: carvediloL 6.25 MG TABLET PO (08:10)
[2021-09-17] MEDS: FUROSEMIDE 40 MG TABLET PO (08:10)
[2021-09-17] MEDS: lisinopriL 10 MG TABLET PO (08:10)
[2021-09-17] MEDS: ROSUVASTATIN 10 MG TABLET PO (08:10)
[2021-09-17] MEDS: AMOXICILLIN/CLAVULANATE K 875-125 MG TAB 1 TABLET PO (08:11)
[2021-09-17] MEDS: FERROUS SULFATE 324 MG TABLET PO (08:11)
[2021-09-17] MEDS: INSULIN ASPART (*BKC) 100 UNITS/ML SUB-Q ×2 (08:12→12:21)
--- NOTE | 2021-09-17 11:34 | PM.PNCARD ---
Progress Note: A&P Assessment and Plan (1) Congestive heart failure: Code(s): I50.9 - Heart failure, unspecified Status: Acute Assessment and Plan: Presented with progressive shortness of breath for about 1 week. Evidence of CHF on initial work up with pulmonary edema and some small pleural effusions on CXR, very mild elevation of NT-pro BNP. She is feeling much better after receiving IV furosemide, significant improvement in her breathing. No swelling. Continue furosemide 40 mg p.o. b.i.d. Continue carvedilol 6.25 mg b.i.d. Increase lisinopril to 20 mg daily Add spironolactone 12.5mg daily (2) Hypertension: Code(s): I10 - Essential (primary) hypertension Status: Acute Assessment and Plan: Remains above goal. Add spironolactone 12.5mg daily. I instructed her to obtain a home blood pressure cuff to monitor daily blood pressure. If unable to purchase home cuff, she is to check her BP several times weekly at [facility] or other retail pharmacy. (3) Anemia: Code(s): D64.9 - Anemia, unspecified Status: Acute Assessment and Plan: Iron studies indicate iron deficiency anemia. She has been started on ferrous sulfate. Management per primary team Subjective Date/time seen: 09/17/21 11:34 Cardiology follow up for CHF Date of service 09/16/2021: Feeling much better today. Her breathing has improved significantly. No shortness of breath with ambulating around her room. No swelling. She does not have any complaints. Date of service 09/17/2021: Continues to feel better. Is not having any difficulty breathing. She has been ambulating in her room without any shortness of breath. OK for discharge from a cardiac perspective with close outpatient follow up Review of Systems Constitutional: Constitutional: Reports no additional constitutional complaints Eyes: Eyes: Reports no additional eye complaints ENT: Reports system reviewed and no additional complaints, except as documented Cardiovascular: Cardiovascular: Reports as per HPI and Reports dyspnea on exertion Respiratory: Respiratory: Reports dyspnea on exertion Gastrointestinal: Gastrointestinal: Reports no additional gastrointestinal complaints Musculoskeletal: Musculoskeletal: Reports no additional musculoskeletal complaints Integumentary/Breasts: Skin/Breast: Reports system reviewed and no additional complaints, except as docu Neurologic: Reports system reviewed and no additional complaints, except as documented Endocrine: Endocrine: Reports no additional endocrine complaints Hematologic/Lymphatic: Hematologic/Lymphatic: Reports no additional hematologic/lymphatic complaints Allergic/Immunologic: Allergic/Immunologic: Reports no additional allergic/immunologic complaints Exam Const: General: comfortable and no acute distress Other: Pleasant overweight black female resting comfortably in bed HENMT: Mouth: Yes moist mucous membranes Eyes: Sclera: sclerae normal Pupils: Equal, round and reactive pupils present Neck: Neck: supple and no JVD Resp: Effort & Inspection: normal respiratory effort Auscultation: crackles (fine crackles bilateral bases) Other: scant rales at the left base Cardio: Rate: regular rate Rhythm: regular rhythm Heart sounds: no murmurs Other: no audible murmur PMI is difficult to palpate GI: Auscultation: normal bowel sounds Skin: General skin exam: normal color Neuro: Cranial nerves: Yes Equal, round and reactive pupils present Cognition (Neuro): normal cognition Extrem: General: normal to inspection and no edema Other: good distal pulses no pitting edema Psych: Appearance: grossly normal Mental Status: mental status grossly normal Objective Data Vital Signs Vital Signs: Vital Signs - 24 hr 09/16/21 14:00 09/16/21 16:00 09/16/21 20:00 Temperature 36.4 C Pulse Rate 84 84 87 Respiratory Rate 16 Blood Pressure 128/61 Pulse Oximetry 93 09/16/21 20
[2021-09-17 11:38] LABS: Glucose Point of Care 228 mg/dl (65-105)
[2021-09-17 12:00] VITALS: PULSE 85
[2021-09-17] MEDS: SPIRONOLACTONE 12.5 MG TABLET PO (12:21)
[2021-09-17 12:51] LABS: IFOB Positive Control Positive; Immunochemical Fecal Occult Bl Negative (N)
--- NOTE | 2021-09-17 15:39 | P.DS_ITS ---
DS: Admitting Diagnosis Discharge Date 09/17/2021 Admitting Diagnosis shortness of breath DS: Discharge Diagnosis Discharge Diagnosis (1) Congestive heart failure: Code(s): I50.9 - Heart failure, unspecified Status: Acute Assessment and Plan: * BNP was 654 * Chest xray showed moderate pulmonary edema * CTA no PE, Cardiomegaly, moderate pleural effusions, adjacent atelectasis * Bilateral bibasilar pleural effusions present, probably related to CHF exacerbation * Echo pending * Aggressive diuresis 40mg IV BID, Lasix 40mg PO * Strict I&O * Daily weight (2) Hypertension: Code(s): I10 - Essential (primary) hypertension Status: Acute Assessment and Plan: * BP 141/80 * No home meds * She will probably be DCd with a diruectic * Trend BP * adjust medications as needed (3) Diabetes mellitus: Code(s): E11.9 - Type 2 diabetes mellitus without complications Status: Acute Assessment and Plan: * Glucose 189 * Holding metformin and Januvia * Accu-Cheks AC and HS * Insulin sliding scale as needed * hypoglycemia protocol * Adjust medications as needed (4) Anemia: Code(s): D64.9 - Anemia, unspecified Status: Acute Assessment and Plan: * Anemia labs indicate iron deficient anemia * Ferrous sulfate 325 BID * H/H is still trending down * Continue to trend * Consider transfusion if Hgb 7.0 DS: Summary Hospital Course Reason for hospitalization: Chief Complaint: SHORTNESS OF BREATH Narrative: This is a 51-year-old female with past medical history significant for hypertension, type 2 diabetes mellitus. Patient presented to the emergency room due to worsening shortness of breath for the last week or so she denies any fevers but has had chills she has had a persistent cough that is worse at bedtime, it is nonproductive, patient has not been able to sleep well due to shortness of breath at nighttime PND and orthopnea she denies any leg swelling ,denies any sputum production, no nausea, no vomiting ,no abdominal pain ,no amelia rrhea, she has been her usual state of health up until this. Preliminary workup was significant for elevated D-dimer a CT angio of the chest did not show acute pulmonary embolism, a brain atretic peptide was elevated at 600 a chest x-ray showed bilateral long pleural effusions patient has been admitted for further management evaluation and treatment. Hospital Course: BNP was 654 * Chest xray showed moderate pulmonary edema * CTA no PE, Cardiomegaly, moderate pleural effusions, adjacent atelectasis * Bilateral bibasilar pleural effusions present, probably related to CHF exacerbation * Echo pending * Aggressive diuresis 40mg IV BID, Lasix 40mg PO * Strict I&O * Daily weight Cardiac echo showed preserved LV function with ejection fraction of 65% and grade 2 diastolic dysfunction most likely patient has acute on chronic diastolic congestive heart failure, patient is being diuresed symptoms are improved will continue Lasix p.o., patient remains clinically stable discharge the patient today. Status at Discharge Functional status at discharge: independent ambulation Overall status at discharge: patient is back to baseline Time Spent with Patient Time attestation: Total time spent providing and/or coordinating discharge services: Patient was seen and examined at the time of the discharge Condition at discharge is stable Code status: Full code. Time spent preparing discharge summary, discharge medications, discus
--- NOTE | 2021-09-17 15:39 | PM.DS ---
DS: Admitting Diagnosis Discharge Date 09/17/2021 Admitting Diagnosis shortness of breath DS: Discharge Diagnosis Discharge Diagnosis (1) Congestive heart failure: Code(s): I50.9 - Heart failure, unspecified Status: Acute Assessment and Plan: BNP was 654 Chest xray showed moderate pulmonary edema CTA no PE, Cardiomegaly, moderate pleural effusions, adjacent atelectasis Bilateral bibasilar pleural effusions present, probably related to CHF exacerbation Echo pending Aggressive diuresis 40mg IV BID, Lasix 40mg PO Strict I&O Daily weight (2) Hypertension: Code(s): I10 - Essential (primary) hypertension Status: Acute Assessment and Plan: BP 141/80 No home meds She will probably be DCd with a diruectic Trend BP adjust medications as needed (3) Diabetes mellitus: Code(s): E11.9 - Type 2 diabetes mellitus without complications Status: Acute Assessment and Plan: Glucose 189 Holding metformin and Januvia Accu-Cheks AC and HS Insulin sliding scale as needed hypoglycemia protocol Adjust medications as needed (4) Anemia: Code(s): D64.9 - Anemia, unspecified Status: Acute Assessment and Plan: Anemia labs indicate iron deficient anemia Ferrous sulfate 325 BID H/H is still trending down Continue to trend Consider transfusion if Hgb 7.0 DS: Summary Hospital Course Reason for hospitalization: Chief Complaint: SHORTNESS OF BREATH Narrative: This is a 51-year-old female with past medical history significant for hypertension, type 2 diabetes mellitus. Patient presented to the emergency room due to worsening shortness of breath for the last week or so she denies any fevers but has had chills she has had a persistent cough that is worse at bedtime, it is nonproductive, patient has not been able to sleep well due to shortness of breath at nighttime PND and orthopnea she denies any leg swelling ,denies any sputum production, no nausea, no vomiting ,no abdominal pain ,no diarrhea, she has been her usual state of health up until this. Preliminary workup was significant for elevated D-dimer a CT angio of the chest did not show acute pulmonary embolism, a brain atretic peptide was elevated at 600 a chest x-ray showed bilateral long pleural effusions patient has been admitted for further management evaluation and treatment. Hospital Course: BNP was 654 Chest xray showed moderate pulmonary edema CTA no PE, Cardiomegaly, moderate pleural effusions, adjacent atelectasis Bilateral bibasilar pleural effusions present, probably related to CHF exacerbation Echo pending Aggressive diuresis 40mg IV BID, Lasix 40mg PO Strict I&O Daily weight Cardiac echo showed preserved LV function with ejection fraction of 65% and grade 2 diastolic dysfunction most likely patient has acute on chronic diastolic congestive heart failure, patient is being diuresed symptoms are improved will continue Lasix p.o., patient remains clinically stable discharge the patient today. Status at Discharge Functional status at discharge: independent ambulation Overall status at discharge: patient is back to baseline Time Spent with Patient Time attestation: Total time spent providing and/or coordinating discharge services: Patient was seen and examined at the time of the discharge Condition at discharge is stable Code status: Full code. Time spent preparing discharge summary, discharge medications, discussing discharge planning with case packer and patient is 35 minutes. Time spent: Greater than 30 minutes Exam Narrative: Patient is comfortable, NAD HEENT: eyes are clear and none icteric LUNGS:CTA HEART: RR S1S2 ABD: BS+, Soft and nontender Lower extremities: no edema SKIN: nonjaundiced Neuro: grossly intact. DS: Data Data Completed and Pending Labs on day of discharge: Labs from last 24 hours 09/17/21 09/17/21 09/17/21
== END 2021-09-17 16:10 | disposition home or self-care (01) | DRG 291 ==
LOC: ANHED 23:46 → ANH3MED 09-15 08:20
PROVIDERS: Nurse Practitioner; Specialist; Admitting Provider Internal Medicine; Emergency Provider Family Medicine; PCP Physician Assistant; Visit Provider Family Medicine
DX: I11.0 Hypertensive heart disease with heart failure (principal); I50.33 Acute on chronic diastolic (congestive) heart failure; I27.20 Pulmonary hypertension, unspecified; D50.9 Iron deficiency anemia, unspecified; E11.9 Type 2 diabetes mellitus without complications; E78.5 Hyperlipidemia, unspecified; Z79.84 Long term (current) use of oral hypoglycemic drugs; Z82.49 Family history of ischemic heart disease and other diseases of the circulatory system
CPT/HCPCS: 36415; 71045; 71275; 80048; 80053; 82274; 82948; 83540; 83550; 83735; 83880; 84484; 85025; 85380; 87040; 93005; 93306; 94640; 96365; 96367; 96375; 99285; A9270; G0378; J0456; J0696; J1815; J1940; J3475; Q9967

== ENCOUNTER 2022-05-29 16:17 | Inpatient (IN) | payer BC, SELFPAY ==
[2022-05-29] VITALS (37 sets, daily range): BP systolic 176–214; BP diastolic 64–113; PULSE 75–96; RESP 8–29; TEMP 36.1–36.9; O2SAT 94–100; BMI 32.4
--- NOTE | ~2022-05-29 | US_ITS ---
EXAMINATION: US renal BI DATE: 05/31/2022 13:06 INDICATION: Acute kidney injury TECHNIQUE: Multiple grayscale and Doppler ultrasound images of the kidneys were obtained. COMPARISON: None. FINDINGS: The right kidney measures 10.4 x 4.6 x 4.9 cm. The left kidney measures 11.4 x 4.7 x 5.1 cm . The kidneys demonstrate normal parenchymal echogenicity. There is no hydronephrosis. The bladder is normal. IMPRESSION: 1. Normal kidneys without hydronephrosis. Reviewed, dictated and finalized at location B.
--- NOTE | ~2022-05-29 | CT_ITS ---
EXAMINATION: CT abdomen pelvis w con DATE: 05/29/2022 19:18 INDICATION: Diffuse abdominal pain. Nausea, vomiting, diarrhea. TECHNIQUE: Computed tomography (CT) of the abdomen and pelvis was performed with 100 mL Omnipaque-350 intravenous contrast. The dose-length product was 988.01 mGy-cm. COMPARISON: 09/24/2020. FINDINGS: Lower thorax: Coronary artery calcification. Bibasilar atelectasis. Liver: Ill-defined 2 cm hypodensity in the left liver lobe, may reflect geographic fat or a liver les ion. Biliary/Gallbladder: Gallbladder is normal. No bile duct dilation. Pancreas: No mass or duct dilation. Spleen: Normal. Adrenals:No mass. Kidneys: 3 cm wedge shaped hypodensity in the left midpole. GI tract: Distal esophageal and gastric wall edema or No small or large bowel dilation. Normal append ix. Water density wall thickening in the ascending, transverse, and portions of the descending colon. Mesentery/Peritoneum: No ascites, mass, or free air. Retroperitoneum: No mass. Pelvis: Bladder wall thickening. Fibroid uterus. Soft Tissues: Soft tissues and body wall unremarkable. Bones: No acute osseous finding. IMPRESSION: Esophagitis/gastritis. 2 cm left liver lobe lesion, recommend nonemergent outpatient MRI of the liver for further characterization. Esophagitis/gastritis. Left renal infarct. Diffuse colitis possibly se condary to infectious, inflammatory, or ischemic etiologies. Possible cystitis. Reviewed, dictated and finalized at location K. IMPRESSION: Esophagitis/gastritis. 2 cm left liver lobe lesion, recommend nonemergent outpa tient MRI of the liver for further characterization. Esophagitis/gastritis. Lef t renal infarct. Diffuse colitis possibly secondary to infectious, inflammatory , or ischemic etiologies. Possible cystitis.
--- NOTE | ~2022-05-29 | XR_ITS ---
EXAMINATION: XR chest 2V Exam Date/Time: 05/29/2022 17:00 CDT HISTORY: shortness of breath Comparison: None available. RESULT: Lines, tubes, and devices: None. Lungs and pleura: Ill-defined vessels with cephalization. Mild fluid in the fissures. Cardiomediastinal silhouette: Stable. Other: No acute osseous or upper abdominal finding. IMPRESSION: Pulmonary vascular congestion versus mild interstitial edema. No focal consolidation.. Reviewed, dictated and finalized at location K. IMPRESSION: Pulmonary vascular congestion versus mild interstitial edema. No focal consolid ation..
--- NOTE | 2022-05-29 16:19 | ECG_ITS ---
Measurements Intervals [place] Rate: 81 P: 48 DE: 143 QRS: 1 QRSD: 78 T: 0 QT: 362 QTc: 422 Interpretive Statements SINUS RHYTHM NONSPECIFIC ST & T-WAVE ABNORMALITY BORDERLINE ECG COMPARED TO ECG 09/14/2021 23:34:07 NO SIGNIFICANT CHANGE Electronically Signed On 05-30-2022 16:10:58 CDT by Karlos Reed M.D.
[2022-05-29 16:43] LABS: Glucose Point of Care 245 mg/dl (65-105)
[2022-05-29 18:15] LABS: Basophils Percent Auto 0.3 % (0.2-1.2); Eosinophils Absolute Auto 0.1 K/mm3 (0-0.3); Eosinophils Percent Auto 0.8 % (0-4.4); Hematocrit 37.8 % (37.0-47.0); Hemoglobin 11.2 g/dL (12.0-15.0); Immature Granulocyte Absolute 0.02 K/mm3 (0.00-0.031); Immature Granulocyte Percent A 0.3 % (0-0.5); Lymphocytes Absolute Auto 1.76 K/mm3 (0.9-3.2); Lymphocytes Percent Auto 23.2 % (18.3-44.2); Mean Corpuscular HGB Conc 29.6 g/dl (32-36); Mean Corpuscular Hemoglobin 20.9 pg (26-34); Mean Corpuscular Volume 70.7 fl (80-100); Mean Platelet Volume 9.8 fl (7.4-10.4); Monocytes Absolute Auto 0.4 K/mm3 (0.1-0.6); Neutrophils Absolute Auto 5.4 K/mm3 (1.3-6.7); Neutrophils Percent Auto 70.4 % (45.5-73.1); Platelet Count Result 225 k/mm3 (150-375); Red Blood Count 5.35 M/mm3 (4.2-5.4); Red Cell Distribution Width 19.2 % (11.5-14.5); White Blood Count 7.6 K/mm3 (4.5-10.0)
[2022-05-29 18:16] LABS: Appearance Urine Clear (Clear); Bilirubin Urine Negative (Negative); Blood Urine 2+ (Negative); Color Urine Yellow (Yellow); Glucose Urine UA 2+ mg/dL (Negative); Ketones Urine Trace mg/dL (Negative); Leukocyte Esterase Ur Negative LEU/UL (Negative); Nitrate Urine Negative (Negative); Protein Urine 3+ mg/dL (Negative); Urobilinogen Urine 0.2 mg/dL (<2.0)
--- NOTE | 2022-05-29 18:21 | ED.ABDPAIN ---
HPI - Abdominal Pain General Chief Complaint: Abdominal Pain Stated Complaint: abd pain Time Seen by Provider: 05/29/22 17:43 History of Present Illness HPI narrative: 52-year-old female presented to the emergency department for evaluation of nausea vomiting and generalized abdominal pain. Patient states her symptoms started yesterday about 6 PM and have persisted. Patient states she is a type II diabetic. Patient denies any current nausea. Patient does admit that she is noncompliant with her medications. Patient does have a history of CHF, hypertension and type 2 diabetes. Patient denies any prior history of atrial fibrillation or cardiac arrhythmias. Patient denies any prior history of PE or DVT. Related Data Home Medications Medication Instructions Recorded Confirmed rosuvastatin 10 mg tablet 10 mg PO DAILY 09/14/21 09/15/21 sitagliptin 50 mg tablet (Januvia) 50 mg PO DAILY 09/14/21 09/15/21 albuterol sulfate 90 mcg/actuation 2 puff inhalation Q4-6H PRN 09/15/21 09/15/21 aerosol inhaler Shortness of breath metformin 1,000 mg tablet 1,000 mg PO BID 09/15/21 09/15/21 Allergies Allergy/AdvReac Type Severity Reaction Status Date / Time No Known Allergies Allergy Verified 09/15/21 01:34 Review of Systems Review of Systems: CONSTITUTIONAL: Denies fever, chills, or sweats. EYES: Denies visual changes, redness, or discharge. ENT: Denies rhinorrhea, congestion, sore throat, or otalgia. CARDIOVASCULAR: Denies chest pain, palpitations, or edema. RESPIRATORY: Denies cough or dyspnea. GASTROINTESTINAL: Generalized abdominal pain, left flank pain and associated nausea and vomiting GENITOURINARY: Denies dysuria or hematuria. SKIN: Denies rash or itching. MUSCULOSKELETAL: Denies back pain, joint pain, or myalgia. NEUROLOGIC: Denies headache, numbness, or weakness. PSYCHIATRIC: Denies anxiety or depression. [facility] Past Medical History Medical History (Updated 05/29/22 @ 21:44 by Mila Crockett DO) Essential hypertension Grade II diastolic dysfunction Echocardiogram 09/16/2021: EF 60 65%, mildly increased left ventricular wall thickness, grade 2 diastolic dysfunction, mild left atrial enlargement, mild aortic, mitral, tricuspid and pulmonic valve regurgitation, moderate pulmonary hypertension Iron deficiency anemia Moderate pulmonary hypertension RVSP 50 on echocardiogram 09/2021 Obesity (BMI 30.0-34.9) Type 2 diabetes mellitus Surgical History Surgical History (Updated 05/29/22 @ 21:41 by Mial Crockett DO) History of repair of rotator cuff (2020) History of tubal ligation Family History Family History Mother Diabetes mellitus Hypertension Heart problem Hyperlipidemia Father Heart attack Social History Social History Smoking status: Never smoker Alcohol intake: never Drinks per week: 1 Substance use: never Spiritual care concerns: No Course Course Emergency Course: Patient CT showed possible colitis but also had a left renal infarct. Case was discussed with the hospitalist and with nephrology. Patient denies any active bleeding. Patient was started on a heparin bolus and infusion. Patient was treated with IV Lasix and IV metoprolol. Patient was admitted to the IMU. Vital Signs Vital signs: Vital Signs Temperature 97.0 F L 05/29/22 16:35 Pulse Rate 85 05/29/22 16:35 Respiratory Rate 16 05/29/22 16:35 Blood Pressure 210/92 H 05/29/22 16:35 Pulse Oximetry 100 05/29/22 16:35 Oxygen Delivery Room Air 05/29/22 16:35 Temperature 97.3 F L 05/29/22 20:30 Pulse Rate 86 05/29/22 21:21 Respiratory Rate 16 05/29/22 21:21 Blood Pressure 176/93 H 05/29/22 21:21 Pulse Oximetry 100 05/29/22 21:21 Oxygen Delivery Room Air 05/29/22 16:35 MDM - Abdominal Pain Lab Data Attestation: I reviewed the patient's lab results. Result diagrams:
[2022-05-29 18:23] LABS: Mucus Urine Rare /lpf; Squamous Epithelial Cell Urine Rare /hpf (Few); WBC Urine 0-3 /hpf
[2022-05-29 18:24] LABS: Alanine Aminotransferase 24 U/L (6-35); Albumin Level 4.5 g/dL (3.5-5.1); Alkaline Phosphatase 124 U/L (38-126); Anion Gap 9 mmol/L (8-16); Aspartate Amino Transferase 39 U/L (14-36); Bilirubin,Total 0.4 mg/dL (0.2-1.3); Blood Urea Nitrogen 11 mg/dL (7-17); Calcium 9.3 mg/dL (8.4-10.2); Carbon Dioxide 30 mmol/L (22-30); Chloride 98 mmol/L (98-107); Estimated CRCL calculation 99 ml/min; Estimated Glomerular Filt Rate > 60; Glucose 250 mg/dL (65-110); Lipase 54 U/L (23-300); Potassium 3.5 mmol/L (3.4-5.0); Sodium 137 mmol/L (137-145)
[2022-05-29 18:25] LABS: Add Urine Microscopic? YES
[2022-05-29 18:36] LABS: Troponin I < 0.012 ng/mL (0.000-0.034)
[2022-05-29 18:42] LABS: Partial Thromboplastin Time 23.4 SECONDS (22.3-36.8); Prothrombin Time 12.7 Seconds (11.1-14.7)
[2022-05-29] MEDS: FUROSEMIDE INJ 40 MG/4 ML VIAL IV PUSH (18:48)
[2022-05-29] MEDS: ONDANSETRON INJ 4 MG/2 ML VIAL IV PUSH (18:49)
[2022-05-29] MEDS: HYDROmorphone HCL INJ (*CRX) 1 MG/ML SYR 0.5 MG IV PUSH ×2 (18:49→23:56)
--- NOTE | 2022-05-29 21:19 | PM.IMHP ---
H&P: HPI History of Present Illness Date/Time: 05/29/22 21:19 Chief Complaint: Generalized abdominal pain since yesterday Narrative: 52-year-old female with a past medical history of uncontrolled diabetes, hypertension, grade 2 diastolic dysfunction and iron deficiency anemia who presented to the ER via private vehicle due to generalized abdominal pain. Patient reports abdominal pain started yesterday around 6:00 p.m. and was associated with nausea and vomiting. She reports that initially or bowel movements for normal but then just before coming to the ER she had 2 loose watery large volume bowel movements. She denies any recent ill contacts or unusual food exposures. She did travel to [facility] last week but no one that was on the trip with her became ill. She denies any recent antibiotic use. She reports that her abdominal pain is mostly in the upper abdomen and is aching in nature. She reports it is a 7/10 in intensity. She denies any eliciting or relieving factors. She denies any fevers or chills. She reports that she had 1 other episode of ?irritable bowel syndrome? several years ago. Her pain does not seem to worsen when I palpate her abdomen. ER physician was able to elicit bilateral CVA tenderness and patient did have a CT which demonstrated possible left renal infarct. CT also demonstrated diffuse colitis ischemic versus infectious versus inflammatory. The patient had some microscopic hematuria on UA but she denies any gross hematuria, increased urinary urgency or dysuria. She reports that her weight is been stable. She has been having some mild increased shortness of breath today. She denies any cough or congestion. She denies any significant leg swelling. On presentation the ER the patient was markedly hypertensive with blood pressures 214/101. She was also hyperglycemic. She admits that she has not taken her medications today. She states that she usually does take her medications but also reports that she does not take her Lasix as directed because she does not want to pee all the time. According to the external med history the patient has not had her metformin filled since January and has not had her Lasix or Januvia filled since November. Her lisinopril has not been filled since October. And Coreg is not been filled since September. Review of Systems Review of Systems: 12 systems were reviewed with pertinent positives and negatives per HPI. Except as documented in the HPI, all other systems were reviewed and are negative. ON LICENSE OF [facility] Past Medical History Medical History (Updated 05/30/22 @ 00:26 by Mila Crockett DO) Essential hypertension Grade II diastolic dysfunction Echocardiogram 09/16/2021: EF 60 65%, mildly increased left ventricular wall thickness, grade 2 diastolic dysfunction, mild left atrial enlargement, mild aortic, mitral, tricuspid and pulmonic valve regurgitation, moderate pulmonary hypertension Iron deficiency anemia Moderate pulmonary hypertension RVSP 50 on echocardiogram 09/2021 Obesity (BMI 30.0-34.9) Type 2 diabetes mellitus Surgical History Surgical History (Updated 05/29/22 @ 21:41 by Mila Crockett DO) History of repair of rotator cuff (2020) History of tubal ligation Family History Family History Mother Diabetes mellitus Hypertension Heart problem Hyperlipidemia Father Heart attack Social History Social History (Updated 05/30/22 @ 00:21 by Mila Crockett DO) Social History: Code status: Full code Surrogate decision maker: Smoking status: Never smoker Alcohol intake: never Drinks per week: 1 Alcohol use details: She drinks 1 alcoholic beverage a month. Substance use: never Additional living arrangements comments: She lives with her of 30 years. They have a daughter age 26 and a son age 31. Spiritual care concerns: No Meds Home Medications and Allergies Ho
[2022-05-29] MEDS: METOPROLOL TARTRATE INJ 5 MG/5 ML VIAL IV PUSH (21:20)
[2022-05-29 21:32] LABS: Troponin I < 0.012 ng/mL (0.000-0.034)
[2022-05-29] MEDS: HEPARIN SOD/D5W 100 UNITS/ML 25,000 UNITS/250 ML BAG 14 UNITS IV CONT (22:02)
[2022-05-29 23:03] LABS: Lactic Acid Reflex 0.8 mmol/L (0.7-2.0)
[2022-05-29 23:16] LABS: Troponin I < 0.012 ng/mL (0.000-0.034)
[2022-05-30] VITALS (20 sets, daily range): BP systolic 104–142; BP diastolic 58–73; PULSE 70–89; RESP 12–18; TEMP 36.5–37; O2SAT 94–100; BMI 32.4
--- NOTE | 2022-05-30 01:22 | PC.NURSE ---
This patient, Riya Chris, was admitted to IMU Room 209-. Patient/family oriented to hospital policies and general routines including ID bracelet, bed and alarms, visiting hours, pain management, procedures, bathroom and other care routines, personal items, smoking policy, room service/diet, and visiting hours. Information on how to activate the Rapid Response Team has been discussed. Patient/Family are encouraged to report perceived risks to care and to ask questions if they do not understand what they are told or what they should do.
[2022-05-30 05:40] LABS: Basophils Percent Auto 0.4 % (0.2-1.2); Eosinophils Absolute Auto 0.1 K/mm3 (0-0.3); Hematocrit 32.1 % (37.0-47.0); Hemoglobin 9.5 g/dL (12.0-15.0); Immature Granulocyte Absolute 0.02 K/mm3 (0.00-0.031); Immature Granulocyte Percent A 0.3 % (0-0.5); Lymphocytes Absolute Auto 3.06 K/mm3 (0.9-3.2); Lymphocytes Percent Auto 38.5 % (18.3-44.2); Mean Corpuscular HGB Conc 29.6 g/dl (32-36); Mean Corpuscular Hemoglobin 21.2 pg (26-34); Mean Corpuscular Volume 71.5 fl (80-100); Mean Platelet Volume 10.7 fl (7.4-10.4); Monocytes Absolute Auto 0.6 K/mm3 (0.1-0.6); Monocytes Percent Auto 7.2 % (2.6-8.5); Neutrophils Absolute Auto 4.2 K/mm3 (1.3-6.7); Neutrophils Percent Auto 52.6 % (45.5-73.1); Platelet Count Result 192 k/mm3 (150-375); Red Blood Count 4.49 M/mm3 (4.2-5.4); Red Cell Distribution Width 18.3 % (11.5-14.5); White Blood Count 7.9 K/mm3 (4.5-10.0)
[2022-05-30 05:44] LABS: Anion Gap 9 mmol/L (8-16); Blood Urea Nitrogen 12 mg/dL (7-17); Calcium 8.8 mg/dL (8.4-10.2); Carbon Dioxide 29 mmol/L (22-30); Chloride 96 mmol/L (98-107); Estimated CRCL calculation 77 ml/min; Estimated Glomerular Filt Rate > 60; Glucose 252 mg/dL (65-110); Potassium 3.1 mmol/L (3.4-5.0); Sodium 134 mmol/L (137-145)
[2022-05-30 06:04] LABS: Hemoglobin A1C 13.7 % (<5.7)
[2022-05-30 07:36] LABS: Glucose Point of Care 236 mg/dl (65-105)
[2022-05-30 09:25] LABS: Magnesium 1.5 mg/dL (1.6-2.3)
[2022-05-30] MEDS: INSULIN ASPART (*BKC) 100 UNITS/ML SUB-Q ×3 (10:15→17:55)
[2022-05-30] MEDS: metFORMIN HCL 500 MG TABLET 1000 MG PO ×2 (10:17→17:53)
[2022-05-30] MEDS: ROSUVASTATIN 10 MG TABLET PO (10:18)
[2022-05-30] MEDS: lisinopriL 20 MG TABLET PO (10:19)
[2022-05-30] MEDS: PANTOPRAZOLE 40 MG TABLET PO (10:20)
[2022-05-30] MEDS: carvediloL 12.5 MG TABLET PO ×2 (10:20→20:29)
[2022-05-30] MEDS: FUROSEMIDE INJ 40 MG/4 ML VIAL IV PUSH (10:20)
[2022-05-30 12:24] LABS: Partial Thromboplastin Time 76.7 SECONDS (22.3-36.8)
[2022-05-30 12:27] LABS: Glucose Point of Care 330 mg/dl (65-105)
--- NOTE | 2022-05-30 14:14 | P.PNIM_ITS ---
Progress Note: A&P Assessment and Plan (1) Colitis: Code(s): K52.9 - Noninfective gastroenteritis and colitis, unspecified Status: Acute Assessment and Plan: Patient presented with abdominal pain most likely due to colitis given onset of diarrhea * CT of the abdomen/pelvis showed diffuse colitis * Continue IV Zosyn * Tolerating diet * Stool cultures ordered, awaiting collection (2) Uncontrolled hypertension: Code(s): I10 - Essential (primary) hypertension Status: Acute Assessment and Plan: Patient has uncontrolled hypertension likely due to nonadherence to her medication regimen. * Blood pressures improved with resuming home medication regimen. Last BP 115/58 * Continue Coreg and increased dose of 12.5 mg b.i.d. * Continue home lisinopril * Monitor BP trends and adjust medication regimen as needed * P.r.n. hydralazine as needed for systolic blood pressure >160 (3) Infarction of kidney: Code(s): N28.0 - Ischemia and infarction of kidney Status: Acute Assessment and Plan: CT of the abdomen/pelvis on presentation showed left renal infarct * Nephrology has been consulted. Appreciate recommendations * Continue heparin drip while awaiting nephrology recommendations * Creatinine is stable (4) Diabetes mellitus with hyperglycemia, without long-term current use of insulin: Qualifiers: Diabetes mellitus type: type 2 Qualified Code(s): E11.65 - Type 2 diabetes mellitus with hyperglycemia Code(s): E11.65 - Type 2 diabetes mellitus with hyperglycemia Status: Acute Assessment and Plan: Poorly controlled. A1c is 13.7 * Continue Accu-Cheks, high-dose sliding scale insulin, hypoglycemic protocol * Continue metformin and Januvia * Will add Lantus 14 units qHS (5) Gastritis: Qualifiers: Gastritis type: unspecified gastritis Chronicity: unspecified Gastritis bleeding: without bleeding Qualified Code(s): K29.70 - Gastritis, unspecified, without bleeding Code(s): K29.70 - Gastritis, unspecified, without bleeding Status: Acute Assessment and Plan: The patient has evidence of gastritis noted on CT of the abdomen pelvis. She denies any GERD or heartburn symptoms previously. * Continue Protonix daily. (6) Acute on chronic diastolic heart failure: Code(s): I50.33 - Acute on chronic diastolic (congestive) heart failure Status: Acute Assessment and Plan: Patient has diastolic heart failure with evidence of pulmonary vascular congestion but no increased work of breathing or hypoxia. * Lasix 40 mg IV daily * Monitor intake and output and daily weights * Continue carvedilol (7) Nonadherence to medication: Code(s): Z91.14 - Patient's other noncompliance with medication regimen Status: Acute Assessment and Plan: Patient is poorly compliant with medication regimen * Will need frequent reinforcement Plan Mag 1.5 and potassium 3.1. Supplement. Subjective Date/time seen: 05/30/22 14:14 Interval history: Date of service: 05/30/2022 Riya Chris is a 52-year-old female with a history of hypertension, diastolic dysfunction, iron deficiency anemia, type 2 diabetes mellitus who is seen in follow up for colitis and renal infarction. She is feeling better today. States her abdominal pain is currently 4/10. She denies nausea or vomiting. She was able to tolerate her breakfast today. She had a bowel movement yesterday that she reports was loose. No bowel move
--- NOTE | 2022-05-30 14:14 | PM.IMPN ---
Progress Note: A&P Assessment and Plan (1) Colitis: Code(s): K52.9 - Noninfective gastroenteritis and colitis, unspecified Status: Acute Assessment and Plan: Patient presented with abdominal pain most likely due to colitis given onset of diarrhea CT of the abdomen/pelvis showed diffuse colitis Continue IV Zosyn Tolerating diet Stool cultures ordered, awaiting collection (2) Uncontrolled hypertension: Code(s): I10 - Essential (primary) hypertension Status: Acute Assessment and Plan: Patient has uncontrolled hypertension likely due to nonadherence to her medication regimen. Blood pressures improved with resuming home medication regimen. Last BP 115/58 Continue Coreg and increased dose of 12.5 mg b.i.d. Continue home lisinopril Monitor BP trends and adjust medication regimen as needed P.r.n. hydralazine as needed for systolic blood pressure >160 (3) Infarction of kidney: Code(s): N28.0 - Ischemia and infarction of kidney Status: Acute Assessment and Plan: CT of the abdomen/pelvis on presentation showed left renal infarct Nephrology has been consulted. Appreciate recommendations Continue heparin drip while awaiting nephrology recommendations Creatinine is stable (4) Diabetes mellitus with hyperglycemia, without long-term current use of insulin: Qualifiers: Diabetes mellitus type: type 2 Qualified Code(s): E11.65 - Type 2 diabetes mellitus with hyperglycemia Code(s): E11.65 - Type 2 diabetes mellitus with hyperglycemia Status: Acute Assessment and Plan: Poorly controlled. A1c is 13.7 Continue Accu-Cheks, high-dose sliding scale insulin, hypoglycemic protocol Continue metformin and Januvia Will add Lantus 14 units qHS (5) Gastritis: Qualifiers: Gastritis type: unspecified gastritis Chronicity: unspecified Gastritis bleeding: without bleeding Qualified Code(s): K29.70 - Gastritis, unspecified, without bleeding Code(s): K29.70 - Gastritis, unspecified, without bleeding Status: Acute Assessment and Plan: The patient has evidence of gastritis noted on CT of the abdomen pelvis. She denies any GERD or heartburn symptoms previously. Continue Protonix daily. (6) Acute on chronic diastolic heart failure: Code(s): I50.33 - Acute on chronic diastolic (congestive) heart failure Status: Acute Assessment and Plan: Patient has diastolic heart failure with evidence of pulmonary vascular congestion but no increased work of breathing or hypoxia. Lasix 40 mg IV daily Monitor intake and output and daily weights Continue carvedilol (7) Nonadherence to medication: Code(s): Z91.14 - Patient's other noncompliance with medication regimen Status: Acute Assessment and Plan: Patient is poorly compliant with medication regimen Will need frequent reinforcement Plan Mag 1.5 and potassium 3.1. Supplement. Subjective Date/time seen: 05/30/22 14:14 Interval history: Date of service: 05/30/2022 Riya Chris is a 52-year-old female with a history of hypertension, diastolic dysfunction, iron deficiency anemia, type 2 diabetes mellitus who is seen in follow up for colitis and renal infarction. She is feeling better today. States her abdominal pain is currently 4/10. She denies nausea or vomiting. She was able to tolerate her breakfast today. She had a bowel movement yesterday that she reports was loose. No bowel movements today. Denies urinary symptoms. Denies SOB, cough, chest pain, dizziness, lightheadedness, weakness, fever, chills. Review of Systems Review of Systems: All systems reviewed & are unremarkable except as noted in HPI and below Exam Narrative: General: Well-nourished, well-appearing 52-year-old female, sitting up in bed, comfortable, NARD Neuro: awake, alert and oriented x4, speech clear, no focal neuro deficits noted
--- NOTE | 2022-05-30 15:05 | PM.CNNEP ---
Assessment and Plan Assessment and plan (1) Infarction of kidney: Code(s): N28.0 - Ischemia and infarction of kidney Status: Acute Assessment and Plan: etiology not clear acuity or chronicity not clear either on heparin gtt consider Hem/Onc consultation for evaluation of hypercoaguability work-up assess for proteinuria and autoimmune disease need chronic anticaogulation(?) (2) Colitis: Code(s): K52.9 - Noninfective gastroenteritis and colitis, unspecified Status: Acute Assessment and Plan: based on CT scan findings on IV antibiotics follow-up on stool studies (3) Hypertension: Code(s): I10 - Essential (primary) hypertension Status: Chronic Assessment and Plan: poor control at baseline (likely due to compliance issues) follow trend of hemodynamics would avoid overcontrol for fear of causing renal hypoperfusion (4) Diabetes mellitus: Code(s): E11.9 - Type 2 diabetes mellitus without complications Status: Chronic Assessment and Plan: follow accuchecks glycemic control Will continue to follow. History of Present Illness Reason for Consult Consult date: 05/30/22 Reason for consult: Other (renal infarct) Chief Complaint Chief complaint: Renal Infarct History of Present Illness Narrative: The patient is a 52-year-old AA female with a past medical history as outlined below who presented to [facility] ER due to complaints of generalized abdominal pain. The abdominal pain started her with the the day prior to presentation to the ER and was associated with nausea and vomiting. Initially, she also is having normal bowel movements but this apparently changed to loose watery bowel movements in the last 24 hr the abdominal pain is localized to the upper abdomen and is described as achy in nature. At its worst it was 7/10 in terms of severity with no specific precipitating or relieving factors. She denied any fevers or chills. Given these constellation of symptoms, she presented the ER for further evaluation. Workup and evaluation emergency room demonstrated the patient be quite hypertensive with a systolic BP greater than 200 in association with hyperglycemia. In addition to the above symptoms, she also complained of some mild shortness of breath. Subsequent testing demonstrated urinalysis was some mild microscopic hematuria but no evidence of acute infection. A CT scan of the abdomen pelvis was done which demonstrated a possible left renal infarct. The CT scan also demonstrated I fused colitis which could be ischemic versus infectious versus inflammatory. Routine blood test did demonstrate that her renal function was well within normal limits. Given the above symptoms as well as the laboratory and imaging findings, she was admitted the hospital for further evaluation and therapy. Renal consultation was requested due to the CT scan finding suggestive of a left renal infarction. Unfortunately, based on the imaging report, is difficult to assess if this is an acute issue, chronic, or acute on chronic. In any case, as mentioned above, her renal function appears to be well within normal limits In spite of these findings. She does have risk factors for kidney disease in the form of poorly controlled hypertension and diabetes but this apparently seems to have had no significant effect on her kidney function as of yet. His difficult to say why she has a left renal infarction unless perhaps maybe she has some type a hypercoagulable issue or some other clotting issue that made her more susceptible to this. She has currently been started on heparin drip given the CT scan findings. Currently, at the time of my visit, she does not appear to be in acute distress. Review of Systems Review of Systems: As per HPI. [facility]LY [facility] Past Medical History Medical History (Updated 05/31/22 @ 06:56 by Petar Dos Santos MD) Essential hypertension Gr
[2022-05-30] MEDS: ACETAMINOPHEN 325 MG TABLET 650 MG PO (15:19)
[2022-05-30] MEDS: MAGNESIUM SULF 2 GM/WATER 50ML 2 GM/50 ML BAG IVPB (15:20)
[2022-05-30] MEDS: POTASSIUM CHLORIDE 20 MEQ TABLET 40 MEQ PO (15:20)
[2022-05-30] MEDS: HEPARIN SOD/D5W 100 UNITS/ML 25,000 UNITS/250 ML BAG 12 UNITS IV CONT (15:32)
[2022-05-30] MEDS: ONDANSETRON INJ 4 MG/2 ML VIAL IV PUSH (15:37)
[2022-05-30 16:32] LABS: Glucose Point of Care 203 mg/dl (65-105)
[2022-05-30 18:13] LABS: Partial Thromboplastin Time 71.7 SECONDS (22.3-36.8)
[2022-05-30 20:00] LABS: Glucose Point of Care 241 mg/dl (65-105)
[2022-05-30] MEDS: INSULIN GLARGINE (*BKC) 100 UNITS/ML 14 UNITS SUB-Q (20:29)
[2022-05-31] VITALS (18 sets, daily range): BP systolic 81–147; BP diastolic 42–68; PULSE 58–88; RESP 12–18; TEMP 36–36.9; O2SAT 97–100
[2022-05-31] MEDS: HYDROmorphone HCL INJ (*CRX) 1 MG/ML SYR 0.5 MG IV PUSH ×2 (03:00→20:17)
[2022-05-31 05:14] LABS: Hematocrit 29.2 % (37.0-47.0); Hemoglobin 8.9 g/dL (12.0-15.0); Immature Platelet Fraction Pct 4.3 % (0.9-11.2); Mean Corpuscular HGB Conc 30.5 g/dl (32-36); Mean Corpuscular Hemoglobin 21.4 pg (26-34); Mean Corpuscular Volume 70.4 fl (80-100); Mean Platelet Volume 10.2 fl (7.4-10.4); Platelet Count Result 177 k/mm3 (150-375); Red Blood Count 4.15 M/mm3 (4.2-5.4); Red Cell Distribution Width 18.2 % (11.5-14.5); White Blood Count 10.9 K/mm3 (4.5-10.0)
[2022-05-31 05:21] LABS: Partial Thromboplastin Time 81.2 SECONDS (22.3-36.8)
[2022-05-31 05:22] LABS: Anion Gap 7 mmol/L (8-16); Blood Urea Nitrogen 23 mg/dL (7-17); Calcium 8.1 mg/dL (8.4-10.2); Carbon Dioxide 29 mmol/L (22-30); Chloride 96 mmol/L (98-107); Estimated CRCL calculation 31 ml/min; Estimated Glomerular Filt Rate 27; Glucose 143 mg/dL (65-110); Potassium 3.6 mmol/L (3.4-5.0); Sodium 132 mmol/L (137-145)
[2022-05-31 06:34] LABS: Albumin Level 3.2 g/dL (3.5-5.1); Anion Gap 7 mmol/L (8-16); Blood Urea Nitrogen 23 mg/dL (7-17); Carbon Dioxide 29 mmol/L (22-30); Chloride 96 mmol/L (98-107); Estimated CRCL calculation 31 ml/min; Estimated Glomerular Filt Rate 27; Glucose 142 mg/dL (65-110); Phosphorus 5.2 mg/dL (2.5-4.5); Potassium 3.6 mmol/L (3.4-5.0); Sodium 132 mmol/L (137-145)
[2022-05-31 07:51] LABS: Glucose Point of Care 197 mg/dl (65-105)
[2022-05-31] MEDS: PANTOPRAZOLE 40 MG TABLET PO (08:36)
[2022-05-31] MEDS: ROSUVASTATIN 10 MG TABLET PO (08:37)
[2022-05-31] MEDS: carvediloL 12.5 MG TABLET PO (08:37)
[2022-05-31] MEDS: HYDROcodone/acetaminophen (*CRX) 5-325 MG TABLET 1 TAB PO (08:40)
[2022-05-31] MEDS: ONDANSETRON INJ 4 MG/2 ML VIAL IV PUSH ×2 (08:47→20:29)
--- NOTE | 2022-05-31 09:11 | PC.NURSE ---
while in bed yesterday pt stated she fell forward and bumped head on bedside table- no alegria on forehead and told this nurse yesterday she was okay. Again today pt stated she fell yesterday - pt goes on to clarify that she fell forward while sitting in bed and bumped head on bedside table- denied any pain
[2022-05-31 09:39] LABS: Albumin Level 3.3 g/dL (3.5-5.1); Anion Gap 9 mmol/L (8-16); Blood Urea Nitrogen 24 mg/dL (7-17); Carbon Dioxide 27 mmol/L (22-30); Chloride 95 mmol/L (98-107); Estimated CRCL calculation 30 ml/min; Estimated Glomerular Filt Rate 26; Glucose 157 mg/dL (65-110); Phosphorus 5.4 mg/dL (2.5-4.5); Potassium 3.7 mmol/L (3.4-5.0); Sodium 131 mmol/L (137-145)
--- NOTE | 2022-05-31 10:04 | P.PNNP_ITS ---
Progress Note: A&P Assessment and Plan (1) KARELY (acute kidney injury): Code(s): N17.9 - Acute kidney failure, unspecified Status: Acute Assessment and Plan: * significant deterioration noted in the last 24 hours * suspect multifactorial: * contrast exposure (dye use noted ~ 48 hours ago) * poissible overcontrol of blood pressure (> 200 systolic on admission with acute drop to 100 - 120 systolic in 24 hours) * IV diuretics * continued use of lisinopril +/- metformin on admission * check renal ultrasound * check urine electrolytes * hold CARMEN-I, diruetics and metformin for now * allow BP to rise closer to 150 systolic * follow repeat labs and UOP (2) Infarction of kidney: Code(s): N28.0 - Ischemia and infarction of kidney Status: Acute Assessment and Plan: * etiology not clear * acuity or chronicity not clear either * on heparin gtt * Hem/Onc consultation for evaluation of hypercoagulability work-up * assess for proteinuria and autoimmune diseases (can associated with thombosis/clotting) * need chronic anticoagulation(?) (3) Colitis: Code(s): K52.9 - Noninfective gastroenteritis and colitis, unspecified Status: Acute Assessment and Plan: * based on CT scan findings * on IV antibiotics * follow-up on stool studies (4) Hypertension: Code(s): I10 - Essential (primary) hypertension Status: Chronic Assessment and Plan: * poor control at baseline (likely due to compliance issues) * see #1 (possible overcontrol led to renal hypoperfusion) * follow trend of hemodynamics (5) Diabetes mellitus: Code(s): E11.9 - Type 2 diabetes mellitus without complications Status: Chronic Assessment and Plan: * follow accuchecks * glycemic control Will continue to follow. Subjective Date/time seen: 05/31/22 10:04 Significant decline in renal function as noted by AM labs (confirmed by repeat labs later this AM as well); no acute distress but still has issues with abdominal pain at the time of my visit. Exam Narrative: General: WD/WN AA female in NAD Heart: normal S1 and S2; no rub Lungs: clear to auscultation Abdomen: soft, nontender, nondistended, positive bowel sounds Extremities: no cyanosis or clubbing; no edema Skin: warm and dry Objective Data Vital Signs Vital Signs: Vital Signs Temp Pulse Resp BP Pulse Ox O2 Del Method 05/31/22 08:00 74 05/31/22 08:37 74 05/31/22 07:55 36.6 C 76 12 114/53 L 100 05/31/22 06:00 72 05/31/22 04:00 Room Air 05/31/22 04:00 36.4 C 88 18 120/59 L 98 05/31/22 04:00 72 05/31/22 02:00 74 05/31/22 00:00 72 05/31/22 00:00 Room Air 05/30/22 23:28 36.5 C 75 18 104/58 L 99 05/30/22 22:00 74 05/30/22 20:30 Room Air 05/30/22 20:00 75 05/30/22 20:29 80 05/30/22 19:31 36.7 C 82 12 114/63 99 05/30/22 18:00 75 05/30/22 16:00 37.0 C 70 12 110/62 100 05/30/22 16:00 77 05/30/22 14:00 71 05/30/22 12:30 89 05/30/22 12:00 36.6 C 74 14 115/58 L 99 05/30/22 10:20 75 Intake/Output Intake/Output:
--- NOTE | 2022-05-31 10:04 | PM.PNNEP ---
Progress Note: A&P Assessment and Plan (1) KARELY (acute kidney injury): Code(s): N17.9 - Acute kidney failure, unspecified Status: Acute Assessment and Plan: significant deterioration noted in the last 24 hours suspect multifactorial: contrast exposure (dye use noted ~ 48 hours ago) poissible overcontrol of blood pressure (> 200 systolic on admission with acute drop to 100 - 120 systolic in 24 hours) IV diuretics continued use of lisinopril +/- metformin on admission check renal ultrasound check urine electrolytes hold CARMEN-I, diruetics and metformin for now allow BP to rise closer to 150 systolic follow repeat labs and UOP (2) Infarction of kidney: Code(s): N28.0 - Ischemia and infarction of kidney Status: Acute Assessment and Plan: etiology not clear acuity or chronicity not clear either on heparin gtt Hem/Onc consultation for evaluation of hypercoagulability work-up assess for proteinuria and autoimmune diseases (can associated with thombosis/clotting) need chronic anticoagulation(?) (3) Colitis: Code(s): K52.9 - Noninfective gastroenteritis and colitis, unspecified Status: Acute Assessment and Plan: based on CT scan findings on IV antibiotics follow-up on stool studies (4) Hypertension: Code(s): I10 - Essential (primary) hypertension Status: Chronic Assessment and Plan: poor control at baseline (likely due to compliance issues) see #1 (possible overcontrol led to renal hypoperfusion) follow trend of hemodynamics (5) Diabetes mellitus: Code(s): E11.9 - Type 2 diabetes mellitus without complications Status: Chronic Assessment and Plan: follow accuchecks glycemic control Will continue to follow. Subjective Date/time seen: 05/31/22 10:04 Significant decline in renal function as noted by AM labs (confirmed by repeat labs later this AM as well); no acute distress but still has issues with abdominal pain at the time of my visit. Exam Narrative: General: WD/WN AA female in NAD Heart: normal S1 and S2; no rub Lungs: clear to auscultation Abdomen: soft, nontender, nondistended, positive bowel sounds Extremities: no cyanosis or clubbing; no edema Skin: warm and dry Objective Data Vital Signs Vital Signs: Vital Signs Temp Pulse Resp BP Pulse Ox O2 Del Method 05/31/22 08:00 74 05/31/22 08:37 74 05/31/22 07:55 36.6 C 76 12 114/53 L 100 05/31/22 06:00 72 05/31/22 04:00 Room Air 05/31/22 04:00 36.4 C 88 18 120/59 L 98 05/31/22 04:00 72 05/31/22 02:00 74 05/31/22 00:00 72 05/31/22 00:00 Room Air 05/30/22 23:28 36.5 C 75 18 104/58 L 99 05/30/22 22:00 74 05/30/22 20:30 Room Air 05/30/22 20:00 75 05/30/22 20:29 80 05/30/22 19:31 36.7 C 82 12 114/63 99 05/30/22 18:00 75 05/30/22 16:00 37.0 C 70 12 110/62 100 05/30/22 16:00 77 05/30/22 14:00 71 05/30/22 12:30 89 05/30/22 12:00 36.6 C 74 14 115/58 L 99 05/30/22 10:20 75 Intake/Output Intake/Output: Intake & Output 05/28/22 05/29/22 05/30/22 05/31/22 23:59 23:59 23:59 23:59 Intake Total 1470 300 Output Total 1400 200 Balance 70 100 Meds/Results Medications: Active Medications Generic Name Dose Route Start Last Admin Trade Name Edgardo PRN Reason Stop Dose Admin Acetaminophen 650 mg 05/30/22 15:10 05/30/22 15:19 Acetaminophen 325 Mg Tablet PO 650 mg Q6H PRN Administration Pain 1-3 Hydrocodone Bitart/Acetaminophen 1 tab 05/30/22 15:10 05/31/22 08:40 Hydrocodone/Acetaminophen (*Crx) 5-325 Mg Tablet PO 1 tab Q6H PRN Administration Pain Rated 4-6 Carvedilol 12.5 mg 05/30/22 09:00 05/31/22 08:37 Carvedilol 12.5 Mg Tablet PO 12.5 mg Q12HR CORBY Administration Dextrose 12.5 gm 05/29/22 21:12 Dextrose 5
[2022-05-31 10:34] LABS: Creatinine Urine 100.4 mg/dL
--- NOTE | 2022-05-31 10:47 | P.PNIM_ITS ---
Progress Note: A&P Assessment and Plan (1) Colitis: Code(s): K52.9 - Noninfective gastroenteritis and colitis, unspecified Status: Acute Assessment and Plan: Patient presented with abdominal pain most likely due to colitis given onset of diarrhea * CT of the abdomen/pelvis showed diffuse colitis * Continue IV Zosyn * Tolerating diet * Stool cultures pending (2) Infarction of kidney: Code(s): N28.0 - Ischemia and infarction of kidney Status: Acute Assessment and Plan: CT of the abdomen/pelvis on presentation showed left renal infarct * Nephrology has been consulted. Appreciate recommendations * Consult placed to Hematology regarding anticoagulation * Continue heparin drip while awaiting hematology recommendations (3) KARELY (acute kidney injury): Code(s): N17.9 - Acute kidney failure, unspecified Status: Acute Assessment and Plan: Marked increased. Creatinine was normal yesterday with increased to 2.4 today * Appreciate nephrology consultation * Renal ultrasound pending * Hold Lasix, lisinopril, and metformin. Avoid nephrotoxic agents * Possibly due to IV contrast vs IV diuretics vs CARMEN inhibitor * Monitor urine output * Monitor BMP (4) Uncontrolled hypertension: Code(s): I10 - Essential (primary) hypertension Status: Acute Assessment and Plan: Patient has uncontrolled hypertension likely due to nonadherence to her medication regimen. * Blood pressures improved decline since resuming home medication regimen * Continue Coreg. Transition back to home dose 6.25 mg q.12h to avoid over correcting blood pressure and allow blood pressure goal of 150 systolic per Nephrology recommendations * Hold lisinopril * Monitor BP trends and adjust medication regimen as needed * P.r.n. hydralazine as needed for systolic blood pressure >180 (5) Diabetes mellitus with hyperglycemia, without long-term current use of insulin: Qualifiers: Diabetes mellitus type: type 2 Qualified Code(s): E11.65 - Type 2 diabetes mellitus with hyperglycemia Code(s): E11.65 - Type 2 diabetes mellitus with hyperglycemia Status: Acute Assessment and Plan: Poorly controlled. A1c is 13.7 * Continue Accu-Cheks, high-dose sliding scale insulin, hypoglycemic protocol * Continue Januvia * Hold metformin * Lantus 14 units qHS (6) Gastritis: Qualifiers: Gastritis type: unspecified gastritis Chronicity: unspecified Gastritis bleeding: without bleeding Qualified Code(s): K29.70 - Gastritis, unspecified, without bleeding Code(s): K29.70 - Gastritis, unspecified, without bleeding Status: Acute Assessment and Plan: Evidence of gastritis noted on CT of the abdomen pelvis. She denies any GERD or heartburn symptoms previously. * Continue Protonix daily. (7) Acute on chronic diastolic heart failure: Code(s): I50.33 - Acute on chronic diastolic (congestive) heart failure Status: Acute Assessment and Plan: Patient has diastolic heart failure with evidence of pulmonary vascular congestion but no increased work of breathing or hypoxia. * Was diuresed with IV Lasix * Hold on further diuresis at this time. Patient appears euvolemic and has developed KARELY * Monitor intake and output and daily weights * Continue carvedilol (8) Nonadherence to medication: Code(s): Z91.14 - Patient's other noncompliance with medication regimen Status: Acute Assessment and Plan: Patient is poorly co
--- NOTE | 2022-05-31 10:47 | PM.IMPN ---
Progress Note: A&P Assessment and Plan (1) Colitis: Code(s): K52.9 - Noninfective gastroenteritis and colitis, unspecified Status: Acute Assessment and Plan: Patient presented with abdominal pain most likely due to colitis given onset of diarrhea CT of the abdomen/pelvis showed diffuse colitis Continue IV Zosyn Tolerating diet Stool cultures pending (2) Infarction of kidney: Code(s): N28.0 - Ischemia and infarction of kidney Status: Acute Assessment and Plan: CT of the abdomen/pelvis on presentation showed left renal infarct Nephrology has been consulted. Appreciate recommendations Consult placed to Hematology regarding anticoagulation Continue heparin drip while awaiting hematology recommendations (3) KARELY (acute kidney injury): Code(s): N17.9 - Acute kidney failure, unspecified Status: Acute Assessment and Plan: Marked increased. Creatinine was normal yesterday with increased to 2.4 today Appreciate nephrology consultation Renal ultrasound pending Hold Lasix, lisinopril, and metformin. Avoid nephrotoxic agents Possibly due to IV contrast vs IV diuretics vs CARMEN inhibitor Monitor urine output Monitor BMP (4) Uncontrolled hypertension: Code(s): I10 - Essential (primary) hypertension Status: Acute Assessment and Plan: Patient has uncontrolled hypertension likely due to nonadherence to her medication regimen. Blood pressures improved decline since resuming home medication regimen Continue Coreg. Transition back to home dose 6.25 mg q.12h to avoid over correcting blood pressure and allow blood pressure goal of 150 systolic per Nephrology recommendations Hold lisinopril Monitor BP trends and adjust medication regimen as needed P.r.n. hydralazine as needed for systolic blood pressure >180 (5) Diabetes mellitus with hyperglycemia, without long-term current use of insulin: Qualifiers: Diabetes mellitus type: type 2 Qualified Code(s): E11.65 - Type 2 diabetes mellitus with hyperglycemia Code(s): E11.65 - Type 2 diabetes mellitus with hyperglycemia Status: Acute Assessment and Plan: Poorly controlled. A1c is 13.7 Continue Accu-Cheks, high-dose sliding scale insulin, hypoglycemic protocol Continue Januvia Hold metformin Lantus 14 units qHS (6) Gastritis: Qualifiers: Gastritis type: unspecified gastritis Chronicity: unspecified Gastritis bleeding: without bleeding Qualified Code(s): K29.70 - Gastritis, unspecified, without bleeding Code(s): K29.70 - Gastritis, unspecified, without bleeding Status: Acute Assessment and Plan: Evidence of gastritis noted on CT of the abdomen pelvis. She denies any GERD or heartburn symptoms previously. Continue Protonix daily. (7) Acute on chronic diastolic heart failure: Code(s): I50.33 - Acute on chronic diastolic (congestive) heart failure Status: Acute Assessment and Plan: Patient has diastolic heart failure with evidence of pulmonary vascular congestion but no increased work of breathing or hypoxia. Was diuresed with IV Lasix Hold on further diuresis at this time. Patient appears euvolemic and has developed KARELY Monitor intake and output and daily weights Continue carvedilol (8) Nonadherence to medication: Code(s): Z91.14 - Patient's other noncompliance with medication regimen Status: Acute Assessment and Plan: Patient is poorly compliant with medication regimen Will need frequent reinforcement Subjective Date/time seen: 05/31/22 10:47 Interval history: Date of service: 05/31/2022 Riya Chris is a 52-year-old female with a history of hypertension, diastolic dysfunction, iron deficiency anemia, type 2 diabetes mellitus who is seen in follow up for colitis and renal infarction. She complains of abdominal pain today which she rates as 5/10. She stat
[2022-05-31 10:49] LABS: Creatinine Urine 99.4 mg/dL; Total Protein Urine Random 49 mg/dL; Ur Ttl Prot Creatinine Ratio 0.49 mg/mg (0-0.20)
[2022-05-31 10:51] LABS: Sodium Urine Random 36 meq/L
[2022-05-31] MEDS: HEPARIN SOD/D5W 100 UNITS/ML 25,000 UNITS/250 ML BAG 12 UNITS IV CONT (11:14)
[2022-05-31 12:40] LABS: Glucose Point of Care 205 mg/dl (65-105)
[2022-05-31] MEDS: INSULIN ASPART (*BKC) 100 UNITS/ML SUB-Q (12:41)
--- NOTE | 2022-05-31 16:30 | PC.NURSE ---
1615- pt transferred to 3rd med/.surg- report given to Debbie RN- pt transferred to room 302 via w/c accompanied by staff- personal belongings with pt
[2022-05-31 16:41] LABS: Glucose Point of Care 145 mg/dl (65-105)
[2022-05-31] MEDS: INSULIN GLARGINE (*BKC) 100 UNITS/ML 14 UNITS SUB-Q (20:17)
[2022-05-31] MEDS: carvediloL 6.25 MG TABLET PO (20:18)
[2022-05-31 20:27] LABS: Glucose Point of Care 242 mg/dl (65-105)
[2022-06-01] VITALS (7 sets, daily range): BP systolic 127–156; BP diastolic 62–72; PULSE 74–81; RESP 14–18; TEMP 35.9–36.4; O2SAT 100
[2022-06-01 06:29] LABS: Hematocrit 29.4 % (37.0-47.0); Hemoglobin 8.9 g/dL (12.0-15.0); Mean Corpuscular HGB Conc 30.3 g/dl (32-36); Mean Corpuscular Hemoglobin 21.1 pg (26-34); Mean Corpuscular Volume 69.7 fl (80-100); Mean Platelet Volume 10.5 fl (7.4-10.4); Platelet Count Result 194 k/mm3 (150-375); Red Blood Count 4.22 M/mm3 (4.2-5.4); Red Cell Distribution Width 18.2 % (11.5-14.5); White Blood Count 8.5 K/mm3 (4.5-10.0)
[2022-06-01 06:38] LABS: Alanine Aminotransferase 14 U/L (6-35); Albumin Level 3.3 g/dL (3.5-5.1); Alkaline Phosphatase 91 U/L (38-126); Anion Gap 7 mmol/L (8-16); Aspartate Amino Transferase 30 U/L (14-36); Bilirubin,Total 0.3 mg/dL (0.2-1.3); Blood Urea Nitrogen 26 mg/dL (7-17); Carbon Dioxide 27 mmol/L (22-30); Chloride 99 mmol/L (98-107); Estimated CRCL calculation 26 ml/min; Estimated Glomerular Filt Rate 21; Glucose 121 mg/dL (65-110); Potassium 3.5 mmol/L (3.4-5.0); Sodium 133 mmol/L (137-145)
[2022-06-01 07:01] LABS: Complement C3 129 mg/dL (88-165)
[2022-06-01] MEDS: HEPARIN SOD/D5W 100 UNITS/ML 25,000 UNITS/250 ML BAG 10 UNITS IV CONT ×3 (07:19→19:18)
--- NOTE | 2022-06-01 07:20 | PC.NURSE ---
heparin bag changed and rate decreased by 2 ml/hr r.t ppt 129 per guidelines, next ppt in q6hrs, verified x2 RN.
[2022-06-01 07:26] LABS: Glucose Point of Care 127 mg/dl (65-105)
[2022-06-01] MEDS: PANTOPRAZOLE 40 MG TABLET PO (08:12)
[2022-06-01] MEDS: ROSUVASTATIN 10 MG TABLET PO (08:12)
[2022-06-01] MEDS: carvediloL 6.25 MG TABLET PO ×2 (08:13→20:31)
[2022-06-01 11:19] LABS: Glucose Point of Care 164 mg/dl (65-105)
--- NOTE | 2022-06-01 11:56 | PC.NURSE ---
clarified compatibility zosyn and heparin with pharmacy
--- NOTE | 2022-06-01 12:55 | PM.PNNEP ---
Progress Note: A&P Assessment and Plan (1) KARELY (acute kidney injury): Code(s): N17.9 - Acute kidney failure, unspecified Status: Acute Assessment and Plan: significant deterioration noted in the last 24 hours suspect multifactorial: contrast exposure (dye use noted ~ 48 hours ago) poissible overcontrol of blood pressure (> 200 systolic on admission with acute drop to 100 - 120 systolic in 24 hours) IV diuretics continued use of lisinopril +/- metformin on admission evaluation to date: renal ultrasound normal urine electrolytes look prerenal ~ 490mg proteinuria holding CARMEN-I, diruetics and metformin for now allow BP to rise closer to 140 - 150s systolic follow repeat labs and UOP (2) Infarction of kidney: Code(s): N28.0 - Ischemia and infarction of kidney Status: Acute Assessment and Plan: etiology not clear acuity versus chronicity not clear either on heparin gtt Hem/Onc consultation for evaluation of hypercoagulability work-up (consult pending) evaluation for autoimmune diseases (can associated with thombosis/clotting) pending need chronic anticoagulation(?) (3) Colitis: Code(s): K52.9 - Noninfective gastroenteritis and colitis, unspecified Status: Acute Assessment and Plan: based on CT scan findings on IV antibiotics follow-up on stool studies (4) Hypertension: Code(s): I10 - Essential (primary) hypertension Status: Chronic Assessment and Plan: poor control at baseline (likely due to compliance issues) see #1 (possible overcontrol led to renal hypoperfusion) follow trend of hemodynamics (5) Diabetes mellitus: Code(s): E11.9 - Type 2 diabetes mellitus without complications Status: Chronic Assessment and Plan: follow accuchecks glycemic control Will continue to follow. Subjective Date/time seen: 06/01/22 12:55 No new issues or concerns at this time; abdominal pain appears to be doing better; no other acute issues/events overnight or earlier this AM; noted to be orthostatic yesterday; systolic BP seems to be doing better as well; no apparent distress voiced. Exam Narrative: General: WD/WN AA female in NAD Heart: normal S1 and S2; no rub Lungs: clear to auscultation Abdomen: soft, nontender, nondistended, positive bowel sounds Extremities: no cyanosis or clubbing; no edema Skin: warm and intact Objective Data Vital Signs Vital Signs: Vital Signs Temp Pulse Resp BP Pulse Ox O2 Del Method 06/01/22 08:21 80 140/72 06/01/22 08:21 80 18 100 Room Air 06/01/22 08:21 36.0 C L 80 18 133/67 100 06/01/22 08:13 80 05/31/22 23:58 36.0 C L 82 18 133/67 100 05/31/22 20:00 Room Air 05/31/22 20:10 83 18 114/59 L 99 05/31/22 20:05 82 18 133/67 100 05/31/22 20:00 36.0 C L 81 18 142/68 H 99 05/31/22 19:43 36.0 C L 58 L 18 147/57 H 97 05/31/22 20:18 80 Intake/Output Intake/Output: Intake & Output 05/29/22 05/30/22 05/31/22 06/01/22 23:59 23:59 23:59 23:59 Intake Total 1470 1180 1862 Output Total 3033 659 3031 Balance 70 980 762 Meds/Results Medications: Active Medications Generic Name Dose Route Start Last Admin Trade Name Freq PRN Reason Stop Dose Admin Acetaminophen 650 mg 05/30/22 15:10 05/30/22 15:19 Acetaminophen 325 Mg Tablet PO 650 mg Q6H PRN Administration Pain 1-3 Hydrocodone Bitart/Acetaminophen 1 tab 05/30/22 15:10 05/31/22 08:40 Hydrocodone/Acetaminophen (*Crx) 5-325 Mg Tablet PO 1 tab Q6H PRN Administration Pain Rated 4-6 Carvedilol 6.25 mg 05/31/22 21:00 06/01/22 08:13 Carvedilol 6.25 Mg Tablet PO 6.25 mg Q12HR CORBY Administration Dextrose 12.5 gm 05/29/22 21:12 Dextrose 50% 25 Gm/50 Ml Syringe IV PUSH PRN PRN Hypoglycemia Protocol Glucagon 1 mg 05/29/22 21:12 Glucagon For Inj 1 Mg Vial IM
--- NOTE | 2022-06-01 12:55 | P.PNNP_ITS ---
Progress Note: A&P Assessment and Plan (1) KARELY (acute kidney injury): Code(s): N17.9 - Acute kidney failure, unspecified Status: Acute Assessment and Plan: * significant deterioration noted in the last 24 hours * suspect multifactorial: * contrast exposure (dye use noted ~ 48 hours ago) * poissible overcontrol of blood pressure (> 200 systolic on admission with acute drop to 100 - 120 systolic in 24 hours) * IV diuretics * continued use of lisinopril +/- metformin on admission * evaluation to date: * renal ultrasound normal * urine electrolytes look prerenal * ~ 490mg proteinuria * holding CARMEN-I, diruetics and metformin for now * allow BP to rise closer to 140 - 150s systolic * follow repeat labs and UOP (2) Infarction of kidney: Code(s): N28.0 - Ischemia and infarction of kidney Status: Acute Assessment and Plan: * etiology not clear * acuity versus chronicity not clear either * on heparin gtt * Hem/Onc consultation for evaluation of hypercoagulability work-up (consult pending) * evaluation for autoimmune diseases (can associated with thombosis/clotting) pending * need chronic anticoagulation(?) (3) Colitis: Code(s): K52.9 - Noninfective gastroenteritis and colitis, unspecified Status: Acute Assessment and Plan: * based on CT scan findings * on IV antibiotics * follow-up on stool studies (4) Hypertension: Code(s): I10 - Essential (primary) hypertension Status: Chronic Assessment and Plan: * poor control at baseline (likely due to compliance issues) * see #1 (possible overcontrol led to renal hypoperfusion) * follow trend of hemodynamics (5) Diabetes mellitus: Code(s): E11.9 - Type 2 diabetes mellitus without complications Status: Chronic Assessment and Plan: * follow accuchecks * glycemic control Will continue to follow. Subjective Date/time seen: 06/01/22 12:55 No new issues or concerns at this time; abdominal pain appears to be doing better; no other acute issues/events overnight or earlier this AM; noted to be orthostatic yesterday; systolic BP seems to be doing better as well; no apparent distress voiced. Exam Narrative: General: WD/WN AA female in NAD Heart: normal S1 and S2; no rub Lungs: clear to auscultation Abdomen: soft, nontender, nondistended, positive bowel sounds Extremities: no cyanosis or clubbing; no edema Skin: warm and intact Objective Data Vital Signs Vital Signs: Vital Signs Temp Pulse Resp BP Pulse Ox O2 Del Method 06/01/22 08:21 80 140/72 06/01/22 08:21 80 18 100 Room Air 06/01/22 08:21 36.0 C L 80 18 133/67 100 06/01/22 08:13 80 05/31/22 23:58 36.0 C L 82 18 133/67 100 05/31/22 20:00 Room Air 05/31/22 20:10 83 18 114/59 L 99 05/31/22 20:05 82 18 133/67 100 05/31/22 20:00 36.0 C L 81 18 142/68 H 99 05/31/22 19:43 36.0 C L 58 L 18 147/57 H 97 05/31/22 20:18 80 Intake/Output Intake/Output: Intake & Output 05/29/22 05/30/22 05/31/22 06/01/22 23:59 23:59 23:59 23:59 Intake Total 1470 1180 1862 Output Total 3725 389 1967 Balance 70 980 762 Meds/Res
--- NOTE | 2022-06-01 12:58 | PM.IMPN ---
Progress Note: A&P Assessment and Plan (1) Colitis: Code(s): K52.9 - Noninfective gastroenteritis and colitis, unspecified Status: Acute Assessment and Plan: Patient presented with abdominal pain most likely due to colitis given onset of diarrhea CT of the abdomen/pelvis showed diffuse colitis Continue IV Zosyn Tolerating diet Stool cultures pending (2) Infarction of kidney: Code(s): N28.0 - Ischemia and infarction of kidney Status: Acute Assessment and Plan: CT of the abdomen/pelvis on presentation showed left renal infarct Nephrology has been consulted. Appreciate recommendations Consult placed to Hematology regarding anticoagulation Continue heparin drip while awaiting hematology recommendations (3) KARELY (acute kidney injury): Code(s): N17.9 - Acute kidney failure, unspecified Status: Acute Assessment and Plan: Marked increased. Creatinine was normal yesterday with increased to 2.4 today Appreciate nephrology consultation Renal ultrasound pending Hold Lasix, lisinopril, and metformin. Avoid nephrotoxic agents Possibly due to IV contrast vs IV diuretics vs CARMEN inhibitor Monitor urine output Monitor BMP (4) Uncontrolled hypertension: Code(s): I10 - Essential (primary) hypertension Status: Acute Assessment and Plan: Patient has uncontrolled hypertension likely due to nonadherence to her medication regimen. Blood pressures improved decline since resuming home medication regimen Continue Coreg. Transition back to home dose 6.25 mg q.12h to avoid over correcting blood pressure and allow blood pressure goal of 150 systolic per Nephrology recommendations Hold lisinopril Monitor BP trends and adjust medication regimen as needed P.r.n. hydralazine as needed for systolic blood pressure >180 (5) Diabetes mellitus with hyperglycemia, without long-term current use of insulin: Qualifiers: Diabetes mellitus type: type 2 Qualified Code(s): E11.65 - Type 2 diabetes mellitus with hyperglycemia Code(s): E11.65 - Type 2 diabetes mellitus with hyperglycemia Status: Acute Assessment and Plan: Poorly controlled. A1c is 13.7 Continue Accu-Cheks, high-dose sliding scale insulin, hypoglycemic protocol Continue Januvia Hold metformin (6) Gastritis: Qualifiers: Gastritis type: unspecified gastritis Chronicity: unspecified Gastritis bleeding: without bleeding Qualified Code(s): K29.70 - Gastritis, unspecified, without bleeding Code(s): K29.70 - Gastritis, unspecified, without bleeding Status: Acute Assessment and Plan: Evidence of gastritis noted on CT of the abdomen pelvis. She denies any GERD or heartburn symptoms previously. Continue Protonix daily. (7) Acute on chronic diastolic heart failure: Code(s): I50.33 - Acute on chronic diastolic (congestive) heart failure Status: Acute Assessment and Plan: Patient has diastolic heart failure with evidence of pulmonary vascular congestion but no increased work of breathing or hypoxia. Was diuresed with IV Lasix Hold on further diuresis at this time. Patient appears euvolemic and has developed KARELY Monitor intake and output and daily weights Continue carvedilol (8) Nonadherence to medication: Code(s): Z91.14 - Patient's other noncompliance with medication regimen Status: Acute Assessment and Plan: Patient is poorly compliant with medication regimen Will need frequent reinforcement Subjective Date/time seen: 06/01/22 12:58 No complaints Exam Narrative: General: Well-nourished, well-appearing 52-year-old female, sitting up in bed, comfortable, NARD Neuro: awake, alert and oriented x4, speech clear, no focal neuro deficits noted HEENMT: normocephalic, atraumatic, EOMI, sclerae anicteric, moist oral mucosa Respiratory: clear to auscultation bilaterally, nonla
[2022-06-01 13:45] LABS: Partial Thromboplastin Time 59.8 SECONDS (22.3-36.8)
[2022-06-01] MEDS: HEPARIN SODIUM 5,000 UNITS/ML VIAL 3000 UNITS IV PUSH (14:03)
--- NOTE | 2022-06-01 14:07 | PC.NURSE ---
ptt 59.8, bolus 3000 u heparin and increased by 2ml/hr per protocol. Next ptt in q6rs at 1808
[2022-06-01 16:12] LABS: Glucose Point of Care 199 mg/dl (65-105)
--- NOTE | 2022-06-01 16:29 | PC.NURSE ---
pt remains on heparin drip for blood clot. Next PPT at 1808.
[2022-06-01 18:49] LABS: Partial Thromboplastin Time 127.1 SECONDS (22.3-36.8)
--- NOTE | 2022-06-01 19:23 | PC.NURSE ---
error with prior heparin enterly at 1404, heparin was bolus 3000u and rate increased by 2ml/hr to 12 ml/hr, now, rate decreased by 2ml/hr and currently running at 10ml/hr. Next PTT 0119
[2022-06-01] MEDS: INSULIN GLARGINE (*BKC) 100 UNITS/ML 14 UNITS SUB-Q (20:30)
[2022-06-01 21:27] LABS: Glucose Point of Care 228 mg/dl (65-105)
[2022-06-02] VITALS (8 sets, daily range): BP systolic 130–159; BP diastolic 61–75; PULSE 69–77; RESP 18; TEMP 35.8–36.2; O2SAT 99–100
[2022-06-02 02:04] LABS: Partial Thromboplastin Time 90.7 SECONDS (22.3-36.8)
[2022-06-02] MEDS: HEPARIN SOD/D5W 100 UNITS/ML 25,000 UNITS/250 ML BAG 10 UNITS IV CONT (06:06)
[2022-06-02 08:08] LABS: Glucose Point of Care 141 mg/dl (65-105)
[2022-06-02 08:18] LABS: Hematocrit 31.1 % (37.0-47.0); Hemoglobin 9.3 g/dL (12.0-15.0); Mean Corpuscular HGB Conc 29.9 g/dl (32-36); Mean Corpuscular Hemoglobin 21.2 pg (26-34); Mean Corpuscular Volume 70.8 fl (80-100); Mean Platelet Volume 10.5 fl (7.4-10.4); Platelet Count Result 202 k/mm3 (150-375); Red Blood Count 4.39 M/mm3 (4.2-5.4); Red Cell Distribution Width 18.6 % (11.5-14.5); White Blood Count 6.5 K/mm3 (4.5-10.0)
[2022-06-02 08:28] LABS: Anion Gap 8 mmol/L (8-16); Blood Urea Nitrogen 24 mg/dL (7-17); Calcium 8.4 mg/dL (8.4-10.2); Carbon Dioxide 29 mmol/L (22-30); Chloride 101 mmol/L (98-107); Estimated CRCL calculation 33 ml/min; Estimated Glomerular Filt Rate 28; Glucose 142 mg/dL (65-110); Potassium 3.7 mmol/L (3.4-5.0); Sodium 138 mmol/L (137-145)
[2022-06-02 08:36] LABS: Partial Thromboplastin Time 65.4 SECONDS (22.3-36.8)
[2022-06-02] MEDS: PANTOPRAZOLE 40 MG TABLET PO (08:36)
[2022-06-02] MEDS: ROSUVASTATIN 10 MG TABLET PO (08:36)
[2022-06-02] MEDS: carvediloL 6.25 MG TABLET PO ×2 (08:36→20:33)
[2022-06-02] MEDS: HEPARIN SODIUM 5,000 UNITS/ML VIAL 3000 UNITS IV PUSH (08:44)
--- NOTE | 2022-06-02 10:32 | PM.IMPN ---
Progress Note: A&P Assessment and Plan (1) Colitis: Code(s): K52.9 - Noninfective gastroenteritis and colitis, unspecified Status: Acute Assessment and Plan: Patient presented with abdominal pain most likely due to colitis given onset of diarrhea CT of the abdomen/pelvis showed diffuse colitis Continue IV Zosyn Tolerating diet (2) Infarction of kidney: Code(s): N28.0 - Ischemia and infarction of kidney Status: Acute Assessment and Plan: CT of the abdomen/pelvis on presentation showed left renal infarct Nephrology has been consulted. Appreciate recommendations Consult placed to Hematology regarding anticoagulation Will switch to Eliquis (3) KARELY (acute kidney injury): Code(s): N17.9 - Acute kidney failure, unspecified Status: Acute Assessment and Plan: Creatinine is improving (4) Uncontrolled hypertension: Code(s): I10 - Essential (primary) hypertension Status: Acute Assessment and Plan: Monitor blood pressure (5) Diabetes mellitus with hyperglycemia, without long-term current use of insulin: Qualifiers: Diabetes mellitus type: type 2 Qualified Code(s): E11.65 - Type 2 diabetes mellitus with hyperglycemia Code(s): E11.65 - Type 2 diabetes mellitus with hyperglycemia Status: Acute Assessment and Plan: Poorly controlled. A1c is 13.7 Continue Accu-Cheks, high-dose sliding scale insulin, hypoglycemic protocol Continue Januvia Hold metformin (6) Gastritis: Qualifiers: Gastritis type: unspecified gastritis Chronicity: unspecified Gastritis bleeding: without bleeding Qualified Code(s): K29.70 - Gastritis, unspecified, without bleeding Code(s): K29.70 - Gastritis, unspecified, without bleeding Status: Acute Assessment and Plan: Evidence of gastritis noted on CT of the abdomen pelvis. She denies any GERD or heartburn symptoms previously. Continue Protonix daily. (7) Acute on chronic diastolic heart failure: Code(s): I50.33 - Acute on chronic diastolic (congestive) heart failure Status: Acute Assessment and Plan: Patient has diastolic heart failure with evidence of pulmonary vascular congestion but no increased work of breathing or hypoxia. Was diuresed with IV Lasix Hold on further diuresis at this time. Patient appears euvolemic and has developed KARELY Monitor intake and output and daily weights Continue carvedilol (8) Nonadherence to medication: Code(s): Z91.14 - Patient's other noncompliance with medication regimen Status: Acute Assessment and Plan: Patient is poorly compliant with medication regimen Will need frequent reinforcement Subjective Date/time seen: 06/02/22 10:32 Exam Narrative: General: Well-nourished, well-appearing 52-year-old female, sitting up in bed, comfortable, NARD Neuro: awake, alert and oriented x4, speech clear, no focal neuro deficits noted HEENMT: normocephalic, atraumatic, EOMI, sclerae anicteric, moist oral mucosa Respiratory: clear to auscultation bilaterally, nonlabored breathing Cardio: regular rate, regular rhythm with S1-S2 Abdomen: nondistended, normoactive bowel sounds, soft, nontender to palpation Extremities: no edema, erythema, or tenderness to palpation, DP pulses 2+ bilaterally Skin: no rashes or lesions, warm and dry Psych: appropriate mood and affect, judgment and insight intact Objective Data Vital Signs Vital Signs: Vital Signs - 24 hr 06/01/22 15:13 06/01/22 20:31 06/01/22 20:00 Temperature 96.7 F L 97.5 F L Pulse Rate 76 74 78 Respiratory Rate 18 14 Blood Pressure 151/71 H 156/68 H Pulse Oximetry 100 100 Oxygen Delivery 06/01/22 21:35 06/01/22 21:35 06/01/22 20:00 Temperature Pulse Rate 79 81 Respiratory Rate Blood Pressure 146/70 H 127/62 Pulse Oximetry 100 100 Oxygen Delivery Room Air 06/01/22 23:
[2022-06-02 11:17] LABS: Glucose Point of Care 225 mg/dl (65-105)
[2022-06-02] MEDS: INSULIN ASPART (*BKC) 100 UNITS/ML SUB-Q (11:36)
--- NOTE | 2022-06-02 12:40 | P.PNNP_ITS ---
Progress Note: A&P Assessment and Plan (1) KARELY (acute kidney injury): Code(s): N17.9 - Acute kidney failure, unspecified Status: Acute Assessment and Plan: * suspect multifactorial: * contrast exposure * possible overcontrol of blood pressure (> 200 systolic on admission with acute drop to 100 - 120 systolic in 24 hours) * IV diuretics * continued use of lisinopril +/- metformin on admission * evaluation to date: * renal ultrasound normal * urine electrolytes look prerenal * ~ 490mg proteinuria * holding CARMEN-I, diruetics and metformin for now * allow BP to rise closer to 140 - 150s systolic * follow repeat labs and UOP (2) Infarction of kidney: Code(s): N28.0 - Ischemia and infarction of kidney Status: Acute Assessment and Plan: * etiology not clear * acuity versus chronicity not clear either * on anticoagulation * Hem/Onc consultation for evaluation of hypercoagulability work-up (consult pending) * evaluation for autoimmune diseases (can associated with thombosis/clotting) pending * need chronic anticoagulation(?) (3) Colitis: Code(s): K52.9 - Noninfective gastroenteritis and colitis, unspecified Status: Acute Assessment and Plan: * based on CT scan findings * on IV antibiotics * follow-up on stool studies (4) Hypertension: Code(s): I10 - Essential (primary) hypertension Status: Chronic Assessment and Plan: * poor control at baseline (likely due to compliance issues) * see #1 (possible overcontrol led to renal hypoperfusion) * follow trend of hemodynamics (5) Diabetes mellitus: Code(s): E11.9 - Type 2 diabetes mellitus without complications Status: Chronic Assessment and Plan: * follow accuchecks * glycemic control Will continue to follow. Subjective Date/time seen: 06/02/22 12:40 Overall, seems to be doing reasonably well; blood pressure appears stable and closer to her baseline; renal function better as noted by AM labs in association with increased urine output in the last 24 hours; no apparent distress voiced at the time of my visit. Exam Narrative: General: WD/WN AA female in NAD Heart: normal S1 and S2; no rub Lungs: clear to auscultation Abdomen: soft, nontender, nondistended, positive bowel sounds Extremities: no cyanosis or clubbing; no edema Skin: no rash or nodules Objective Data Vital Signs Vital Signs: Vital Signs Temp Pulse Resp BP Pulse Ox O2 Del Method 06/02/22 08:08 35.8 C L 72 18 145/62 H 100 06/02/22 08:07 35.8 C L 72 18 151/75 H 100 06/02/22 08:00 35.8 C L 69 18 158/69 H 100 06/02/22 08:00 35.8 C L 72 18 151/75 H 100 06/01/22 23:44 36.4 C L 78 16 156/68 H 100 06/01/22 20:00 Room Air 06/01/22 21:35 81 127/62 100 06/01/22 21:35 79 146/70 H 100 06/01/22 20:00 36.4 C L 78 14 156/68 H 100 06/01/22 20:31 74 06/01/22 15:13 35.9 C L 76 18 151/71 H 100 Intake/Output Intake/Output: Intake & Output 05/30/22 05/31/22 06/01/22 06/02/22 23:59 23:59 23:59 23:59 Intake Total 1470 1180 2834 1650 Output Total 2981 393 9593 Balance 70 980 1334 1650 Meds/Results Medic
--- NOTE | 2022-06-02 12:40 | PM.PNNEP ---
Progress Note: A&P Assessment and Plan (1) KARELY (acute kidney injury): Code(s): N17.9 - Acute kidney failure, unspecified Status: Acute Assessment and Plan: suspect multifactorial: contrast exposure possible overcontrol of blood pressure (> 200 systolic on admission with acute drop to 100 - 120 systolic in 24 hours) IV diuretics continued use of lisinopril +/- metformin on admission evaluation to date: renal ultrasound normal urine electrolytes look prerenal ~ 490mg proteinuria holding CARMEN-I, diruetics and metformin for now allow BP to rise closer to 140 - 150s systolic follow repeat labs and UOP (2) Infarction of kidney: Code(s): N28.0 - Ischemia and infarction of kidney Status: Acute Assessment and Plan: etiology not clear acuity versus chronicity not clear either on anticoagulation Hem/Onc consultation for evaluation of hypercoagulability work-up (consult pending) evaluation for autoimmune diseases (can associated with thombosis/clotting) pending need chronic anticoagulation(?) (3) Colitis: Code(s): K52.9 - Noninfective gastroenteritis and colitis, unspecified Status: Acute Assessment and Plan: based on CT scan findings on IV antibiotics follow-up on stool studies (4) Hypertension: Code(s): I10 - Essential (primary) hypertension Status: Chronic Assessment and Plan: poor control at baseline (likely due to compliance issues) see #1 (possible overcontrol led to renal hypoperfusion) follow trend of hemodynamics (5) Diabetes mellitus: Code(s): E11.9 - Type 2 diabetes mellitus without complications Status: Chronic Assessment and Plan: follow accuchecks glycemic control Will continue to follow. Subjective Date/time seen: 06/02/22 12:40 Overall, seems to be doing reasonably well; blood pressure appears stable and closer to her baseline; renal function better as noted by AM labs in association with increased urine output in the last 24 hours; no apparent distress voiced at the time of my visit. Exam Narrative: General: WD/WN AA female in NAD Heart: normal S1 and S2; no rub Lungs: clear to auscultation Abdomen: soft, nontender, nondistended, positive bowel sounds Extremities: no cyanosis or clubbing; no edema Skin: no rash or nodules Objective Data Vital Signs Vital Signs: Vital Signs Temp Pulse Resp BP Pulse Ox O2 Del Method 06/02/22 08:08 35.8 C L 72 18 145/62 H 100 06/02/22 08:07 35.8 C L 72 18 151/75 H 100 06/02/22 08:00 35.8 C L 69 18 158/69 H 100 06/02/22 08:00 35.8 C L 72 18 151/75 H 100 06/01/22 23:44 36.4 C L 78 16 156/68 H 100 06/01/22 20:00 Room Air 06/01/22 21:35 81 127/62 100 06/01/22 21:35 79 146/70 H 100 06/01/22 20:00 36.4 C L 78 14 156/68 H 100 06/01/22 20:31 74 06/01/22 15:13 35.9 C L 76 18 151/71 H 100 Intake/Output Intake/Output: Intake & Output 05/30/22 05/31/22 06/01/22 06/02/22 23:59 23:59 23:59 23:59 Intake Total 1470 1180 2834 1650 Output Total 3308 426 7358 Balance 70 980 1334 1650 Meds/Results Medications: Active Medications Generic Name Dose Route Start Last Admin Trade Name Freq PRN Reason Stop Dose Admin Acetaminophen 650 mg 05/30/22 15:10 05/30/22 15:19 Acetaminophen 325 Mg Tablet PO 650 mg Q6H PRN Administration Pain 1-3 Hydrocodone Bitart/Acetaminophen 1 tab 05/30/22 15:10 05/31/22 08:40 Hydrocodone/Acetaminophen (*Crx) 5-325 Mg Tablet PO 1 tab Q6H PRN Administration Pain Rated 4-6 Apixaban 5 mg 06/02/22 21:00 Apixaban 5 Mg Tablet PO Q12HR CORBY Carvedilol 6.25 mg 05/31/22 21:00 06/02/22 08:36 Carvedilol 6.25 Mg Tablet PO 6.25 mg Q12HR CORBY Administration Dextrose 12.5 gm 05/29/22 21:12 Dextrose 50% 25 Gm/50 Ml Syringe IV PUSH PRN PRN Hypoglycemia Protocol
--- NOTE | 2022-06-02 12:48 | PDONCCN ---
HPI - Date of Consult Date/Time: 06/02/22 12:48 Requesting Physician: Elizabeth Frias PA-C Primary Care Provider: Tanya Mcginnis, ELIEZER - Consult Narrative Reason for consult: Hypercoagulable state Narrative: Riya Chris is a 52 year old female obese female with recently diagnosed diabetes, hypertension and iron deficiency anemia came into the ER with generalized abdominal pain started just day before the admission. She it was associated with nausea and vomiting. Patient also had lose watery stool prior to the admission. CT abdomen and pelvis showed esophagitis, 2 cm left liver lobe lesion and MRI was recommended. There was left renal infarction and diffuse colitis. Labs showed normal creatinine of 0.9 on admission but dropped to 2.3 after receiving the contrast for CT scan. Other labs showed hemoglobin of 11.2 then dropped down to 9.3. She denies any previous history of thromboembolic events. Her mother had blood clot who about 2 years ago. He denies any other new complaints. Her abdominal pain has improved. Review of Systems - Review of Systems All systems reviewed & are unremarkable except as noted in HPI and [facility] Medical History: Medical History (Last Updated 05/29/22 @ 21:42 by Mila Crockett DO) Essential hypertension Grade II diastolic dysfunction Echocardiogram 09/16/2021: EF 60 65%, mildly increased left ventricular wall thickness, grade 2 diastolic dysfunction, mild left atrial enlargement, mild aortic, mitral, tricuspid and pulmonic valve regurgitation, moderate pulmonary hypertension Iron deficiency anemia Moderate pulmonary hypertension RVSP 50 on echocardiogram 09/2021 Obesity (BMI 30.0-34.9) Type 2 diabetes mellitus Surgical History: Surgical History (Last Updated 05/29/22 @ 21:41 by Mila Crockett DO) History of repair of rotator cuff Onset Date: 2020 History of tubal ligation Family History: Family History (Last Reviewed 05/30/22 @ 00:20 by Mila Crockett DO) Mother Diabetes mellitus Hypertension Heart problem Hyperlipidemia Father Heart attack - Social History Social History: Social History (Last Updated 05/30/22 @ 00:21 by Mila Crockett DO) Alcohol Use: Alcohol intake: never Drinks per week: 1 Alcohol use details: She drinks 1 alcoholic beverage a month. Substance Use: Substance use: never Others: Spiritual care concerns: No Smoking Status: Smoking status: Never smoker Exam - Vital Signs Vital Signs - 24 hr 06/01/22 15:13 06/01/22 20:31 06/01/22 20:00 Temperature 35.9 C L 36.4 C L Pulse Rate 76 74 78 Respiratory Rate 18 14 Blood Pressure 151/71 H 156/68 H Pulse Oximetry 100 100 Oxygen Delivery 06/01/22 21:35 06/01/22 21:35 06/01/22 20:00 Temperature Pulse Rate 79 81 Respiratory Rate Blood Pressure 146/70 H 127/62 Pulse Oximetry 100 100 Oxygen Delivery Room Air 06/01/22 23:44 06/02/22 08:00 06/02/22 08:00 Temperature 36.4 C L 35.8 C L 35.8 C L Pulse Rate 78 72 69 Respiratory Rate 16 18 18 Blood Pressure 156/68 H 151/75 H 158/69 H Pulse Oximetry 100 100 100 Oxygen Delivery 06/02/22 08:07 06/02/22 08:08 Temperature 35.8 C L 35.8 C L Pulse Rate 72 72 Respiratory Rate 18 18 Blood Pressure 151/75 H 145/62 H Pulse Oximetry 100 100 Oxygen Delivery - Exam HEENT: EOMI, PERRLA, mucous membranes moist and pink Neck: No: JVD Lungs: clear to auscultation, normal air movement Heart: no murmurs, gallops, or rubs, regular rhythm, regular rate Abdomen: abdomen soft, non-distended, normal bowel sounds Extremities: normal pulses Integumentary: no abnormalities Neurological: normal speech Psychological: mental status NL, mood NL - Lab Results Laboratory Last Values WBC 6.5 K/mm3 (4.5-10.0) 06/02/22 07:52 RBC 4.39 M/mm3 (4.2-5.4) 06/02/22 07:52 Hgb 9.3 g/dL (12.0-15.0) L 06/02/22 07:52 H
[2022-06-02 15:08] LABS: Partial Thromboplastin Time 109.1 SECONDS (22.3-36.8)
[2022-06-02 16:19] LABS: Glucose Point of Care 183 mg/dl (65-105)
[2022-06-02] MEDS: FERROUS SULFATE 324 MG TABLET PO (17:15)
[2022-06-02 18:24] LABS: Iron 20 ug/dL (37-170)
[2022-06-02 18:35] LABS: Percent Iron Saturation 7 % (20-50)
[2022-06-02] MEDS: APIXABAN 5 MG TABLET PO (20:33)
[2022-06-02] MEDS: INSULIN GLARGINE (*BKC) 100 UNITS/ML 14 UNITS SUB-Q (20:33)
[2022-06-02 20:51] LABS: Glucose Point of Care 210 mg/dl (65-105)
[2022-06-02] MEDS: polyethylene glycoL 3350 17 GM POWD.PACK PO (22:12)
[2022-06-03] VITALS: BP 152/74; PULSE 77; RESP 18; TEMP 36.3; O2SAT 100
[2022-06-03 05:24] LABS: Hematocrit 28.6 % (37.0-47.0); Hemoglobin 8.3 g/dL (12.0-15.0); Mean Corpuscular Hemoglobin 20.8 pg (26-34); Mean Corpuscular Volume 71.7 fl (80-100); Mean Platelet Volume 10.2 fl (7.4-10.4); Platelet Count Result 186 k/mm3 (150-375); Red Blood Count 3.99 M/mm3 (4.2-5.4); Red Cell Distribution Width 18.6 % (11.5-14.5); White Blood Count 6.5 K/mm3 (4.5-10.0)
[2022-06-03 05:37] LABS: Anion Gap 6 mmol/L (8-16); Blood Urea Nitrogen 22 mg/dL (7-17); Calcium 8.1 mg/dL (8.4-10.2); Carbon Dioxide 29 mmol/L (22-30); Chloride 101 mmol/L (98-107); Estimated CRCL calculation 36 ml/min; Estimated Glomerular Filt Rate 32; Glucose 204 mg/dL (65-110); Sodium 136 mmol/L (137-145)
[2022-06-03 08:00] VITALS: BP 157/70; PULSE 77; RESP 18; TEMP 36.3; O2SAT 99
[2022-06-03 08:05] VITALS: BP 146/88; PULSE 78
[2022-06-03 08:10] VITALS: BP 150/66; PULSE 78
[2022-06-03 08:17] LABS: Glucose Point of Care 165 mg/dl (65-105)
[2022-06-03] MEDS: ROSUVASTATIN 10 MG TABLET PO (08:24)
[2022-06-03] MEDS: APIXABAN 5 MG TABLET PO (08:25)
[2022-06-03] MEDS: PANTOPRAZOLE 40 MG TABLET PO (08:25)
[2022-06-03] MEDS: FERROUS SULFATE 324 MG TABLET PO (08:25)
[2022-06-03] MEDS: carvediloL 6.25 MG TABLET PO (08:25)
[2022-06-03] MEDS: SENNA/DOCUSATE SODIUM TABLET 2 TAB PO (09:38)
--- NOTE | 2022-06-03 10:21 | P.PNNP_ITS ---
Progress Note: A&P Assessment and Plan (1) KARELY (acute kidney injury): Code(s): N17.9 - Acute kidney failure, unspecified Status: Acute Assessment and Plan: * suspect multifactorial: * contrast exposure * possible overcontrol of blood pressure (> 200 systolic on admission with acute drop to 100 - 120 systolic in 24 hours) * IV diuretics * continued use of lisinopril +/- metformin on admission * evaluation to date: * renal ultrasound normal * urine electrolytes look prerenal * ~ 490mg proteinuria * holding CARMEN-I, diuretics and metformin for now * attempt to keep systolic BP to rise closer to 140 - 150s systolic for now * follow repeat labs and UOP (2) Infarction of kidney: Code(s): N28.0 - Ischemia and infarction of kidney Status: Acute Assessment and Plan: * etiology not clear * acuity versus chronicity not clear either * on anticoagulation * Hem/Onc recommendations noted * evaluation for autoimmune diseases (can associated with thombosis/clotting) pending (3) Colitis: Code(s): K52.9 - Noninfective gastroenteritis and colitis, unspecified Status: Acute Assessment and Plan: * based on CT scan findings * on antibiotics * clinical improvement noted (4) Hypertension: Code(s): I10 - Essential (primary) hypertension Status: Chronic Assessment and Plan: * poor control at baseline (likely due to compliance issues) * see #1 (possible overcontrol led to renal hypoperfusion) * would hold CARMEN-I till renal function normalizes * continue carvedilol and titrate as needed (5) Diabetes mellitus: Code(s): E11.9 - Type 2 diabetes mellitus without complications Status: Chronic Assessment and Plan: * follow accuchecks * glycemic control Probably okay for discharge -- would plan to check BMP by PCP early next week to ensure kidney function continues to improve/stabilize as well as Hem/Onc follow- up. Will continue to follow. Subjective Date/time seen: 06/03/22 10:21 No new issues to report - abdominal pain is doing better if not resolved; seen by Hem/Onc yesterday -- transitioned to eliquis from heparin gtt with plans to follow-up as an outpatient for further testing/evaluation; renal function continues to improve as noted by AM labs. Exam Narrative: General: WD/WN AA female in NAD Heart: normal S1 and S2; no rub Lungs: clear to auscultation Abdomen: soft, nontender, nondistended, positive bowel sounds Extremities: no cyanosis or clubbing; no edema Skin: warm and dry Objective Data Vital Signs Vital Signs: Vital Signs Temp Pulse Resp BP Pulse Ox O2 Del Method 06/03/22 08:10 78 150/66 H 06/03/22 08:05 78 146/88 H 06/03/22 08:00 36.3 C L 77 18 157/70 H 99 06/03/22 08:00 77 157/70 H 06/03/22 00:00 36.3 C L 77 18 152/74 H 100 06/02/22 20:10 77 18 152/74 H 100 06/02/22 20:05 77 18 136/71 99 06/02/22 20:00 36.2 C L 74 18 159/72 H 100 06/02/22 20:00 Room Air 06/02/22 20:33 74 06/02/22 16:00 36.2 C L 76 18 130/61 100 Intake/Output Intake/Output: Intake & Output 05/31/22 06/01/22 06/02/22 06/03/22 23:59 23:59 23:59 23:59 Intake Total 1180
--- NOTE | 2022-06-03 10:21 | PM.PNNEP ---
Progress Note: A&P Assessment and Plan (1) KARELY (acute kidney injury): Code(s): N17.9 - Acute kidney failure, unspecified Status: Acute Assessment and Plan: suspect multifactorial: contrast exposure possible overcontrol of blood pressure (> 200 systolic on admission with acute drop to 100 - 120 systolic in 24 hours) IV diuretics continued use of lisinopril +/- metformin on admission evaluation to date: renal ultrasound normal urine electrolytes look prerenal ~ 490mg proteinuria holding CARMEN-I, diuretics and metformin for now attempt to keep systolic BP to rise closer to 140 - 150s systolic for now follow repeat labs and UOP (2) Infarction of kidney: Code(s): N28.0 - Ischemia and infarction of kidney Status: Acute Assessment and Plan: etiology not clear acuity versus chronicity not clear either on anticoagulation Hem/Onc recommendations noted evaluation for autoimmune diseases (can associated with thombosis/clotting) pending (3) Colitis: Code(s): K52.9 - Noninfective gastroenteritis and colitis, unspecified Status: Acute Assessment and Plan: based on CT scan findings on antibiotics clinical improvement noted (4) Hypertension: Code(s): I10 - Essential (primary) hypertension Status: Chronic Assessment and Plan: poor control at baseline (likely due to compliance issues) see #1 (possible overcontrol led to renal hypoperfusion) would hold CARMEN-I till renal function normalizes continue carvedilol and titrate as needed (5) Diabetes mellitus: Code(s): E11.9 - Type 2 diabetes mellitus without complications Status: Chronic Assessment and Plan: follow accuchecks glycemic control Probably okay for discharge -- would plan to check BMP by PCP early next week to ensure kidney function continues to improve/stabilize as well as Hem/Onc follow-up. Will continue to follow. Subjective Date/time seen: 06/03/22 10:21 No new issues to report - abdominal pain is doing better if not resolved; seen by Hem/Onc yesterday -- transitioned to eliquis from heparin gtt with plans to follow-up as an outpatient for further testing/evaluation; renal function continues to improve as noted by AM labs. Exam Narrative: General: WD/WN AA female in NAD Heart: normal S1 and S2; no rub Lungs: clear to auscultation Abdomen: soft, nontender, nondistended, positive bowel sounds Extremities: no cyanosis or clubbing; no edema Skin: warm and dry Objective Data Vital Signs Vital Signs: Vital Signs Temp Pulse Resp BP Pulse Ox O2 Del Method 06/03/22 08:10 78 150/66 H 06/03/22 08:05 78 146/88 H 06/03/22 08:00 36.3 C L 77 18 157/70 H 99 06/03/22 08:00 77 157/70 H 06/03/22 00:00 36.3 C L 77 18 152/74 H 100 06/02/22 20:10 77 18 152/74 H 100 06/02/22 20:05 77 18 136/71 99 06/02/22 20:00 36.2 C L 74 18 159/72 H 100 06/02/22 20:00 Room Air 06/02/22 20:33 74 06/02/22 16:00 36.2 C L 76 18 130/61 100 Intake/Output Intake/Output: Intake & Output 05/31/22 06/01/22 06/02/22 06/03/22 23:59 23:59 23:59 23:59 Intake Total 1180 2834 2944 840 Output Total 200 1500 3500 1500 Balance 980 1011 -978 -459 Meds/Results Medications: Active Medications Generic Name Dose Route Start Last Admin Trade Name Edgardo PRN Reason Stop Dose Admin Acetaminophen 650 mg 05/30/22 15:10 05/30/22 15:19 Acetaminophen 325 Mg Tablet PO 650 mg Q6H PRN Administration Pain 1-3 Hydrocodone Bitart/Acetaminophen 1 tab 05/30/22 15:10 05/31/22 08:40 Hydrocodone/Acetaminophen (*Crx) 5-325 Mg Tablet PO 1 tab Q6H PRN Administration Pain Rated 4-6 Apixaban 5 mg 06/02/22 21:00 06/03/22 08:25 Apixaban 5 Mg Tablet PO 5 mg Q12HR CORBY Administration Carvedilol 6.25 mg 05/31/22 21:00 06/03/22 08:25 Carvedilol 6.25 Mg Tablet P
[2022-06-03 12:06] LABS: Glucose Point of Care 183 mg/dl (65-105)
[2022-06-04 22:09] LABS: ANCA Screen Negative (Negative)
[2022-06-07 17:03] LABS: Cryoglobulin, QL Negative (Negative)
[2022-06-07 19:42] LABS: Anti Glomerular Basement Memb <1.0 AI (<1.0)
--- NOTE | 2022-07-05 12:09 | PM.DS ---
DS: Admitting Diagnosis Discharge Date 06/03/22 Admitting Diagnosis colitis DS: Discharge Diagnosis Discharge Diagnosis (1) Colitis: Code(s): K52.9 - Noninfective gastroenteritis and colitis, unspecified Status: Acute Assessment and Plan: Patient presented with abdominal pain most likely due to colitis given onset of diarrhea CT of the abdomen/pelvis showed diffuse colitis Continue IV Zosyn Tolerating diet (2) Infarction of kidney: Code(s): N28.0 - Ischemia and infarction of kidney Status: Acute Assessment and Plan: CT of the abdomen/pelvis on presentation showed left renal infarct Nephrology has been consulted. Appreciate recommendations Consult placed to Hematology regarding anticoagulation Will switch to Eliquis (3) KARELY (acute kidney injury): Code(s): N17.9 - Acute kidney failure, unspecified Status: Acute Assessment and Plan: Creatinine is improving (4) Uncontrolled hypertension: Code(s): I10 - Essential (primary) hypertension Status: Acute Assessment and Plan: Monitor blood pressure (5) Diabetes mellitus with hyperglycemia, without long-term current use of insulin: Qualifiers: Diabetes mellitus type: type 2 Qualified Code(s): E11.65 - Type 2 diabetes mellitus with hyperglycemia Code(s): E11.65 - Type 2 diabetes mellitus with hyperglycemia Status: Acute Assessment and Plan: Poorly controlled. A1c is 13.7 Continue Accu-Cheks, high-dose sliding scale insulin, hypoglycemic protocol Continue Januvia Hold metformin (6) Gastritis: Qualifiers: Gastritis type: unspecified gastritis Chronicity: unspecified Gastritis bleeding: without bleeding Qualified Code(s): K29.70 - Gastritis, unspecified, without bleeding Code(s): K29.70 - Gastritis, unspecified, without bleeding Status: Acute Assessment and Plan: Evidence of gastritis noted on CT of the abdomen pelvis. She denies any GERD or heartburn symptoms previously. Continue Protonix daily. (7) Acute on chronic diastolic heart failure: Code(s): I50.33 - Acute on chronic diastolic (congestive) heart failure Status: Acute Assessment and Plan: Patient has diastolic heart failure with evidence of pulmonary vascular congestion but no increased work of breathing or hypoxia. Was diuresed with IV Lasix Hold on further diuresis at this time. Patient appears euvolemic and has developed KARELY Monitor intake and output and daily weights Continue carvedilol (8) Nonadherence to medication: Code(s): Z91.14 - Patient's other noncompliance with medication regimen Status: Acute Assessment and Plan: Patient is poorly compliant with medication regimen Will need frequent reinforcement DS: Summary Hospital Course Hospital Course: admitted for colitis - did well with conservative management with iv abx - sent home on oral abx also noted to small infarct of kidney w bump in cr - sent home on doac and cr appears to be improving fu dr redding and diving judge and pcp Time Spent with Patient Time attestation: Total time spent providing and/or coordinating discharge services: Exam Narrative: General: Well-nourished, well-appearing 52-year-old female, sitting up in bed, comfortable, NARD Neuro: awake, alert and oriented x4, speech clear, no focal neuro deficits noted HEENMT: normocephalic, atraumatic, EOMI, sclerae anicteric, moist oral mucosa Respiratory: clear to auscultation bilaterally, nonlabored breathing Cardio: regular rate, regular rhythm with S1-S2 Abdomen: nondistended, normoactive bowel sounds, soft, nontender to palpation Extremities: no edema, erythema, or tenderness to palpation, DP pulses 2+ bilaterally Skin: no rashes or lesions, warm and dry Psych: appropriate mood and affect, judgment and insight intact Discharge Plan Discharge Attending
== END 2022-06-03 13:35 | disposition home or self-care (01) | DRG 391 ==
LOC: ANHED 18:28 → ANHIMU 21:45 → ANH3MEDSUR 05-31 16:56
PROVIDERS: Emergency Medicine; Internal Medicine; Internal Medicine Hematology & Oncology; Internal Medicine Nephrology; Physician Assistant; Admitting Provider Internal Medicine; Emergency Provider Emergency Medicine; PCP Physician Assistant; Visit Provider Chiropractor
DX: K52.9 Noninfective gastroenteritis and colitis, unspecified (principal); I50.33 Acute on chronic diastolic (congestive) heart failure; N28.0 Ischemia and infarction of kidney; N17.9 Acute kidney failure, unspecified; I11.0 Hypertensive heart disease with heart failure; I95.1 Orthostatic hypotension; R31.9 Hematuria, unspecified; E11.65 Type 2 diabetes mellitus with hyperglycemia; K29.70 Gastritis, unspecified, without bleeding; D50.9 Iron deficiency anemia, unspecified; E66.9 Obesity, unspecified; Z68.32 Body mass index [BMI] 32.0-32.9, adult; Z79.84 Long term (current) use of oral hypoglycemic drugs; Z79.899 Other long term (current) drug therapy; Z91.14 Patient's other noncompliance with medication regimen
CPT/HCPCS: 36415; 71046; 74177; 76775; 80048; 80053; 80069; 81001; 81050; 82570; 82595; 82607; 82728; 82746; 82948; 83036; 83520; 83540; 83550; 83605; 83690; 83735; 84156; 84300; 84484; 85025; 85027; 85055; 85610; 85730; 86036; 86038; 86160; 86225; 87045; 87269; 87272; 87427; 93005; 96365; 96366; 96367; 96368; 96375; 96376; 99285; A9270; G0378; J1170; J1644; J1815; J1940; J2405; J2543; J3475; Q9967

== ENCOUNTER 2022-07-17 12:58 | Outpatient (CLI) | payer BC, SELFPAY ==
--- NOTE | ~2022-07-17 | MR_ITS ---
EXAMINATION: MR abdomen wo/w con INDICATION: Liver lesion TECHNIQUE: Coronal SSFSE ARC, WATER:coronal LAVA-FLEX, Coronal 2D FIESTA FatSat, Axial SSFSE BH ARC, Axial 3D DualEcho BH, Axial SSFSE-IR, Axial DWI b=500, Axial 2D FIESTA FatSat, pre and dynamic postco ntrast Axial LAVA ARC, postcontrast Coronal In and Opposed phase LAVA FLEX COMPARISON: CT, 05/29/2020 CONTRAST: Multihance, 19 cc FINDINGS: No suspicious liver lesion is identified. There is subtle hepatic steatosis of the liver in the region questioned on the comparison CT examination. The spleen, gallbladder, and adrenal glands are normal. The right kidney is unremarkable. Pancreas divisum is noted. A wedge-shaped area of hypoi ntensity in the left kidney is consistent with prior infarct. There are no pathologically enlarged ab dominal lymph nodes. There is unchanged mild enlargement of the common bile duct measures 3 mm. There are no dilated loops of bowel. IMPRESSION: 1. No suspicious liver lesion identified. 2. Mild enlargement of the common bile duct of unclear etiology. Reviewed, dictated and finalized at location A.
== END 2022-07-17 12:59 | disposition home or self-care (01) ==
PROVIDERS: PCP Physician Assistant; Visit Provider Family Medicine
DX: K76.9 Liver disease, unspecified (principal)
CPT/HCPCS: 74183; A9577

== ENCOUNTER 2022-11-23 06:59 | Outpatient (CLI) | payer BC, SELFPAY ==
--- NOTE | ~2022-11-23 | CT_ITS ---
EXAMINATION: CT abdomen pelvis w con DATE: 11/23/2022 07:26 INDICATION: Renal infarction TECHNIQUE: Computed tomography (CT) of the abdomen and pelvis was performed with 100 cc Omnipaque 350 intravenous contrast. The dose-length product was 936.18 mGy-cm. Automated exposure control and iter ative reconstruction technique were employed. COMPARISON: CT dated 05/29/2022. FINDINGS: Lung bases are unremarkable. Heart size normal.There is stable hypodensity of the left hepa tic lobe just lateral to the falciform ligament, likely focal fatty infiltration. No suspicious julio cesar s identified on prior MRI examination dated 07/17/2022. The spleen, pancreas, adrenal glands and righ t kidney are unremarkable. There is evidence for contraction and cortical thinning in the area of pre vious left renal infarction, mid aspect. No hydronephrosis. No significant vascular abnormality. Ther e are follicular changes of the ovaries bilaterally. Colonic diverticula without evidence for diverti culitis. Nonobstructive bowel pattern. Normal appendix. There is sclerosis along the sacroiliac joint s bilaterally, likely degenerative. Moderate lower lumbar spondylosis. IMPRESSION: 1. No acute abdominal abnormality. 2: Maturing left renal infarction midpole laterally. Reviewed, dictated and finalized at location A. CIENTIST
[2022-11-23 07:21] LABS: Estimated Glomerular Filt Rate > 60
== END 2022-11-23 07:00 | disposition home or self-care (01) ==
PROVIDERS: PCP Physician Assistant; Visit Provider Internal Medicine Hematology & Oncology
DX: N28.0 Ischemia and infarction of kidney (principal)
CPT/HCPCS: 74177; Q9967

== ENCOUNTER 2022-12-02 09:40 | Outpatient (CLI) | payer BC, SELFPAY ==
[2022-12-02 10:15] LABS: Hematocrit 36.8 % (37.0-47.0); Hemoglobin 10.9 g/dL (12.0-15.0); Mean Corpuscular HGB Conc 29.6 g/dl (32-36); Mean Corpuscular Hemoglobin 20.5 pg (26-34); Mean Corpuscular Volume 69.2 fl (80-100); Mean Platelet Volume 9.8 fl (7.4-10.4); Platelet Count Result 200 k/mm3 (150-375); Red Blood Count 5.32 M/mm3 (4.2-5.4); Red Cell Distribution Width 17.4 % (11.5-14.5); White Blood Count 5.5 K/mm3 (4.5-10.0)
[2022-12-02 14:07] LABS: Iron 19 ug/dL (37-170)
[2022-12-02 14:18] LABS: Percent Iron Saturation 6 % (20-50)
== END 2022-12-02 09:41 | disposition home or self-care (01) ==
LOC: ANHLAB 09:41
PROVIDERS: PCP Physician Assistant; Visit Provider Internal Medicine Hematology & Oncology
DX: D64.9 Anemia, unspecified (principal)
CPT/HCPCS: 36415; 82728; 83540; 83550; 85027